=== PATIENT | female | born 1955 | race African-American/Black ===

== ENCOUNTER → 2016-11-29 | Outpatient (CLI) | payer OTHER ==
[2014-08-29 08:55] VITALS: BP 145/89
[~2016-11-29] MED LIST: DOCU-27 PO; DULO60CA6 PO; ESTR0.5T PO; IOHEXOL 180 MG/ML 10 ML VIAL. ONE; MELO-150 PO; TRIA1TAB2 PO; methylPREDNISolone ACETATE 40 MG/ML VIAL. ONE; methylPREDNISolone ACETATE 80 MG/ML VIAL. ONE
--- NOTE | 2016-11-30 00:32 | PAIN ---
DATE OF SERVICE: 11/29/2016 DIAGNOSES: Lumbar radiculopathy with lumbar spinal stenosis, degenerative disk disease and post-lumbar laminectomy syndrome. HISTORY OF PRESENT ILLNESS: The patient is a 61-year-old female who returns for followup status post lumbar epidural steroid injection x 1 on 10/30/2016. The patient reports she did very well about 80% improvement for the first 2 weeks now has about ____ improvement overall in the low back and right lower extremity. The patient reports pain is returning fairly significantly with a sharp and burning sensation, also dull aching pain in the low back radiating to the right leg in the lateral anterior medial thigh and medial lower leg to some extent, but always on the right side. The patient reports no new motor or sensory deficits, no new bowel or bladder incontinence or other complaints. The patient reports her pain is 4 on a scale of 10 today. PHYSICAL EXAMINATION: VITAL SIGNS: The patient's blood pressure 149/75, pulse 72, respirations 18, temperature 97.7 degrees Fahrenheit. Height is 5 feet 6 inches, weight is 190 pounds. GENERAL: The patient is awake, alert, oriented, appropriate, very pleasant demeanor. HEENT: Head shows normocephalic, atraumatic. Extraocular movements are intact and symmetrical. Oral cavity, mucous membranes are moist and pink. Dentition is intact. NECK: Shows anterior throat supple without palpable lymphadenopathy noted. Swallow reflex is symmetrical. Neck shows full rotational motion of the cervical spine without difficulty or tenderness. CHEST: Shows normal on inspection. Breath sounds are clear to auscultation bilaterally. HEART: Shows S1 and S2 clear. ABDOMEN: Soft, nontender, nondistended. No palpable organomegaly is noted. No rebound or guarding demonstrated. BACK: Shows spine grossly midline. Well healed surgical scars noted in the lumbar distribution, lumbar paraspinous musculature is firm with some moderate tenderness to palpation, but only diffusely throughout the upper, middle and lower distribution of paraspinous muscles are symmetrical on appearance. No tenderness over the sacrum or sacroiliac regions. EXTREMITIES: Lower extremities showed deep tendon reflexes at 2+ in the patellar, 1+ tendo calcaneus tendons. Motor exam is strong with 5/5 dorsiflexion, extension, quadriceps and hamstring flexion and equal and symmetrical. Options were discussed with the patient and the patient's old chart was reviewed as her current medication regimen updated. Current review of systems updated today as well and we will plan on second lumbar epidural steroid injection today with fluoroscopic guidance. Risks were again discussed including, but not limited to bleeding, infection, possibility of epidural hematoma, subsequent neurologic compromise, dural puncture, headaches, spinal cord and/or nerve damage, side effects of steroid medication and poor results regarding pain control. The patient understands and wishes to proceed. The patient will return to clinic in approximately 2 weeks for followup, counseled on return appointment, activity level and side effects to be aware of. DIAGNOSES: Lumbar radiculopathy with lumbar spinal stenosis, degenerative disk disease and post-lumbar laminectomy syndrome. PROCEDURE: Lumbar epidural steroid injection, translaminar approach at the L3-L4 level with fluoroscopic guidance under sterile prep and draping using local anesthetic. MEDICATIONS INJECTED: 120 mg Depomedrol plus 10 mL of preservative-free normal saline and 2 mL of Isovue contrast. CONDITION AT DISCHARGE: Stable. The patient tolerated procedure well, had no complications. KLARISSA VOGEL MD DR: SHIN/luz JOB#: [id number] / [id number]
== END ==
LOC: PNCL 08:09
PROVIDERS: ATTEND Anesthesiology
DX: M51.16 Intervertebral disc disorders with radiculopathy, lumbar region (principal); M96.1 Postlaminectomy syndrome, not elsewhere classified; M48.06 Spinal stenosis, lumbar region
CPT/HCPCS: 62323; 99213; J1030; J1040

== ENCOUNTER → 2017-01-10 | Outpatient (CLI) | payer OTHER ==
[2014-08-29 08:55] VITALS: BP 145/89
[~2017-01-10] MED LIST changes: +GABA-586 PO; -IOHEXOL 180 MG/ML 10 ML VIAL. ONE; +METH750T2 PO; +OXYC1TAB9 PO; -methylPREDNISolone ACETATE 40 MG/ML VIAL. ONE; -methylPREDNISolone ACETATE 80 MG/ML VIAL. ONE
[2017-01-10 13:25] LABS: BASO # 0.1 x10^3/uL (0.0-0.2); BASO % 1 % (0-3); EOS % 5 % (0-3); HEMATOCRIT 37.5 % (36.0-47.0); LYMPH % 26 % (24-48); MEAN CORPUSCULAR HEMOGLOBIN 27 pg (25-35); MEAN CORPUSCULAR HGB CONC 32 g/dL (31-37); MEAN CORPUSCULAR VOLUME 85 fL (79-100); MONO % 9 % (0-9); NEUT % 60 % (31-73); PLATELET COUNT 351 x10^3/uL (140-400); RED BLOOD COUNT 4.44 x10^6/uL (3.50-5.40); RED CELL DISTRIBUTION WIDTH 14.4 % (11.5-14.5); WHITE BLOOD COUNT 7.8 x10^3/uL (4.0-11.0)
--- NOTE | 2017-01-10 13:27 | EKG ---
[facility] [address] [place] [address] Test Date: 2017-01-10 Test Time: 13:33:30 Pat Name: MADINA DAMON Department: Room: Gender: [employer] Worker: DALJITK : 1955 Requested By: ANGELES CASTILLO Order Number: [id number] Reading MD: Cheikh Robledo Measurements Intervals Biggers Rate: 56 P: 33 MI: 160 QRS: -2 QRSD: 94 T: 11 QT: 394 QTc: 383 Interpretive Statements SINUS RHYTHM NON-SPECIFIC ST/T CHANGES Electronically Signed On 01-13-2017 13:27:36 CDT by Cheikh Robledo
[2017-01-10 13:41] LABS: ALBUMIN 3.5 g/dL (3.4-5.0); ALBUMIN/GLOBULIN RATIO 0.9 (1.0-1.7); CALCIUM 9.1 mg/dL (8.5-10.1); GFR 68.4; POTASSIUM 3.7 mmol/L (3.5-5.1); TOTAL BILIRUBIN 0.5 mg/dL (0.2-1.0); TOTAL PROTEIN 7.3 g/dL (6.4-8.2)
--- NOTE | 2017-01-13 20:40 | PREOP HP ---
DATE OF SERVICE: 01/15/2017 DICTATED BY: Mayank Rowell R.N. 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 Her last surgery was more than 10 years ago. She has difficulty chronically with left-sided lower back and left buttock pain. More recently, she has developed right anterior thigh pain, which she said is severe. Standing and walking increased her pain. The right sided pain has been present for about 6 months. She limits her activities and since she has very little pain. Standing and walking markedly increased her discomfort. She takes gabapentin. She limits her activities as far as she can. She has had epidural steroid injections recently, which have been of no lasting benefit. PAST MEDICAL HISTORY: Arthritis, hypertension, IBS-C. PAST SURGICAL HISTORY: Lumbar surgery x 3, hysterectomy, tonsillectomy, breast biopsy, bilateral cataract surgery, breast reduction, abdominal surgery. FAMILY HISTORY: Alzheimer's, hypertension. 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 She is . She denies substance abuse. Denies tobacco use. Drinks coffee daily. ALLERGIES: SULFA DRUGS, PENICILLINS, AND LATEX. CURRENT MEDICATIONS: Colace, Cymbalta, Maxzide, Meloxicam, estradiol, and gabapentin. REVIEW OF SYSTEMS: A 12-point review of systems was obtained and is noncontributory except for that mentioned above. NEUROSURGERY EXAMINATION: GENERAL APPEARANCE: Alert, pleasant, in no acute distress. HEAD: Normocephalic and atraumatic. SKIN: Warm and dry, well healed lumbar incisions. MUSCULOSKELETAL: Lumbar paraspinal muscle bulk is normal, restricted range of motion of the lumbar spine, [id number] tenderness of lower lumbar spine with palpation, normal range of motion of the lower extremities bilaterally. EXTREMITIES: No clubbing, cyanosis, or edema. NEUROLOGIC: Alert and oriented x 3, normal recent and remote memory, strength 5/5 in bilateral lower extremities, sensory was intact to light touch in the bilateral lower extremities except for a decrease in the right anterior thigh, reflexes were 1+ left knee jerk, absent right knee jerk, absent left ankle jerk, 1+ right ankle jerk, negative straight leg raising bilaterally, normal gait. IMAGING REVIEWED: I reviewed a lumbar MRI scan. On L3-L4 on the right there is a broad-based disk protrusion that extends predominantly through the right neural foramen, which is associated with severe right-sided foraminal narrowing. At L4-L5, there is posterior disk bulging on the right side with right foraminal and right lateral recess narrowing. At L5-S1, there are postoperative changes on the left with moderate left foraminal stenosis. ASSESSMENT/ PLAN: I believe the problem at L3-L4 on the right is a primary issue responsible for her right anterior thigh pain. At this point, I recommended lumbar microsurgery at L3-L4 on the right including a transfacet exposure to decompress the right L3 nerve root. I also recommend a lumbar microdiscectomy at L4-L5 on the right. I discussed all of this with her in detail. We discussed the risks and expected postoperative course. She would like to go ahead. We will make the arrangements. ANGELES CASTILLO MD DR: HARESH/luz JOB#: [id number] / [id number] ELIAN
== END | disposition home or self-care (01) ==
LOC: SURGPAT 12:36
PROVIDERS: ATTEND Neurological Surgery
DX: Z01.818 Encounter for other preprocedural examination (principal); M54.16 Radiculopathy, lumbar region
CPT/HCPCS: 36415; 80053; 85027; 87641; 93005

== ENCOUNTER 2017-01-15 07:03 | Observation (INO) | payer OTHER ==
[~2017-01-15] VITALS: Ht 170.2 cm; Wt 84.8 kg
[2017-01-15] VITALS (8 sets, daily range): BP systolic 116–139; BP diastolic 64–72
[~2017-01-15 07:03] MED LIST changes: +BACITRACIN 50,000 UNIT in IV NORMAL SALINE 1000ML BAG 1,000 ML IRR ONE; +FENTANYL PF 100 MCG/2 ML VIAL. IV PRN; +IV RINGERS,LACTATED 1000ML 1,000 ML IV SCH; +LIDOCAINE 1% 1 ML SYRINGE. ID PRN; -METH750T2 PO; +ONDANSETRON PF 4 MG/2 ML VIAL. IV PRN; +PROCHLORPERAZINE 10 MG/2 ML VIAL. IV PRN; +VANCOMYCIN 1GM IVPB FOR OMNI 250 ML IV PRN
[2017-01-15] MEDS ORDERED: PROPOFOL 20 ML IV ONE (07:28)
[2017-01-15] MEDS ORDERED: LIDOCAINE 2% 100 MG/5 ML DISP.SYRIN. ONE (07:28)
[2017-01-15] MEDS ORDERED: 0.9 % SODIUM CHLORIDE 50 ML VIAL. IJ ONE (07:28)
[2017-01-15] MEDS ORDERED: PROPOFOL 50 ML IV ONE ×2 (07:28→10:36)
[2017-01-15] MEDS ORDERED: ROCURONIUM 50 MG/5 ML VIAL. ONE (07:29)
[2017-01-15] MEDS ORDERED: REMIFENTANIL 2 MG VIAL. IV ONE (07:29)
[2017-01-15] MEDS ORDERED: FENTANYL PF 100 MCG/2 ML VIAL. ONE (07:29)
[2017-01-15] MEDS ORDERED: SUCCINYLCHOLINE 200 MG/10 ML VIAL. ONE (07:29)
[2017-01-15] MEDS ORDERED: THROMBIN 20,000 UNIT SPRAY.SYRN KIT TP ONE (07:43)
[2017-01-15] MEDS ORDERED: GELATIN SPONGE SIZE 100. ONE (07:43)
[2017-01-15] MEDS ORDERED: KETOROLAC 60 MG/2 ML SYRINGE FOR OR. ONE (07:44)
[2017-01-15] MEDS ORDERED: BUPIVAC MPF-EPI 0.5%-1:200000 30 ML VIAL. ONE (07:44)
[2017-01-15] MEDS ORDERED: EPHEDRINE PF IN SALINE 50 MG/5 ML DISP.SYRIN. IV ONE (09:14)
[2017-01-15] MEDS ORDERED: DEXAMETHASONE SOD PHOS 20 MG/5 ML VIAL. ONE (09:29)
[2017-01-15] MEDS ORDERED: DESFLURANE > 120 MINUTES IH ONE (09:29)
[2017-01-15] MEDS ORDERED: ONDANSETRON PF 4 MG/2 ML VIAL. ONE (10:07)
[2017-01-15] MEDS ORDERED: 0.9 % SODIUM CHLORIDE 10 ML DISP.SYRIN. IV PRN (11:45)
[2017-01-15] MEDS ORDERED: ZOLPIDEM 5 MG TABLET. PO PRN (11:45)
[2017-01-15] MEDS ORDERED: OXYCODONE/APAP 5/325 TABLET. PO PRN (11:45)
[2017-01-15] MEDS ORDERED: NALOXONE 0.4 MG/ML VIAL. IV PRN (11:45)
[2017-01-15] MEDS ORDERED: FENTANYL PF 100 MCG/2 ML VIAL. IV PRN ×2 (11:45)
[2017-01-15] MEDS ORDERED: DIPHENHYDRAMINE 50 MG/ML VIAL IV PRN (11:45)
[2017-01-15] MEDS: MORPHINE SULFATE 2 MG/ML DISP.SYRIN. IV PRN ×4 (11:48→12:26)
[2017-01-15] MEDS: FENTANYL PF 100 MCG/2 ML VIAL. IV PRN ×5 (11:57→13:23)
[2017-01-15] MEDS: HYDROMORPHONE 2 MG/ML VIAL. IV PRN ×4 (12:00→12:48)
[2017-01-15] MEDS ORDERED: MEPERIDINE PF 25 MG/ML VIAL. IV PRN (12:00)
[2017-01-15] MEDS ORDERED: IV DEXTROSE 5 %-0.45 % NACL 1,000 ML IV SCH (13:00)
--- NOTE | 2017-01-15 15:12 | OP ---
DATE OF SURGERY: 01/15/17 PREOPERATIVE DIAGNOSES: 1. Herniated disc and lateral recess stenosis, L4-L5 right. 2. Foraminal disc herniation L3-L4 right with right lumbar radiculopathy. POSTOPERATIVE DIAGNOSES: 1. Herniated disc and lateral recess stenosis, L4-L5, right. 2. Foraminal disc herniation L3-L4 right with right lumbar radiculopathy. OPERATION PERFORMED: 1. Hemilaminotomy and microdiscectomy, right L4-L5. 2. Transfacet exposure with microdecompression of dura and nerve root, L3-L4 right. The operation was done with EMG monitoring, fluoroscopy, and microscopic dissection. SURGEON: John Castillo M.D. UNDER PRESSER: Saleem Sims MD assisted with the surgery, assisted with exposure, the micro diskectomies at both levels as well as the closure. OPERATIVE INDICATIONS: The patient is a very pleasant 61-year-old woman who in the past has undergone 3 previous lumbar surgeries. She did well from those operations. In recent months, she has developed increasing pain in her back which radiated into both the right lateral thigh. On imaging studies, she had the above-mentioned findings and I recommended lumbar microsurgery. I spoke with her about the surgery and the risks involved, she wished to go ahead. DESCRIPTION OF PROCEDURE: Following general endotracheal anesthesia, the patient was positioned prone on the [facility] spine board. Her lumbar region was prepped and draped in a standard fashion. RUSS hose and AV impulse boots were applied for DVT prophylaxis. A microscope was draped. Fluoroscopy was draped and brought into field. Monitoring was established. Vancomycin 1 g was given. Using fluoroscopic guidance, incision was made from L3 through L5. I dissected down through the skin and subcutaneous tissue. This did incorporate a significant portion of her previous incision and reflected the paraspinal muscles and placed a self retaining [place] micro disc retractor, brought in the microscope and directed my attention to L4-L5 confirming my position fluoroscopically. I burred down a generous hemilaminotomy. There was subligamentous herniated disc material which exposed the dura for performing a partial foraminotomy and trimming away ligamentum flavum. I gently retracted the root medially, I incised the annulus and ligament with a #11 blade and I teased back and removed multiple disc fragments and as I worked, the region became very well decompressed. Following this, I explored carefully. I did use small amounts of bone wax for any bone bleeding as well as bipolar cautery and had excellent hemostasis. I then removed the retractors superiorly, I confirmed my position at L3-L4 at this level and I burred down laminotomy and I then followed laterally exposing the L3 root as well as the L4 root, performing partial foraminotomy. I visualized a large lateral disc herniation. I incised the annulus laterally and performed discectomy with pituitary rongeurs. I teased back and removed multiple lateral fragments and the well decompressed L3 root more medially, I trimmed disc away and fully decompressed the entire region. I then irrigated copiously with antibiotic solution. I explored carefully, I assured myself that both roots were quite free throughout their course and no retained fragments. I irrigated and obtained hemostasis with bipolar cautery, again bone wax was used judiciously. I removed the retractor, obtained hemostasis in the muscle, irrigated copiously and I closed the wound in layers with absorbable suture. Skin was closed with 4-0 subcuticular stitch. The operation went very well and the patient was taken to recovery in excellent condition. I was quite pleased with the surgery. JOHN CASTILLO MD DR: HARESH/luz JOB#: [id number] / [id number] ELIAN
[2017-01-15] MEDS: OXYCODONE/APAP 5/325 TABLET. PO PRN ×2 (15:44→20:29)
[2017-01-15] MEDS: DOCUSATE SODIUM 100 MG CAPSULE PO SCH (20:27)
[2017-01-15] MEDS: METHOCARBAMOL 750 MG TABLET PO PRN (20:29)
--- NOTE | 2017-01-15 23:38 | ACF ---
Admission Forms Criteria MUSCULOSKELETAL DISEASE GRG Clinical Indications for Admission to Inpatient Care (Place 'X' for any and all applicable criteria): Hospital admission is needed for appropriate care of the patient because of ANY ONE of the following: [ ]I. Fracture, dislocation, or other musculoskeletal injury requiring inpatient care(medical) as indicated by ANY ONE of the following(4)(5)(6)(7) [ ]a) Vertebral fracture requiring observation for instability or neurologic compromise (8) [ ]b) Compartment syndrome (proven or cannot be ruled out during observation level of care) (9) [ ]c) Limb-threatening injury [ ]d) Major injury requiring inpatient stabilization such as traction initiation or external fixation before internal fixation or closure of complex or open fracture [ ]e) Major injury requiring inpatient treatment after emergency or observation level care (as appropriate) [ ]f) Severe pain requiring acute inpatient management [ ]II. Newly diagnosed or suspected bone, joint, or orthopedic device infection (e.g., osteomyelitis, septic arthritis) needing ANY ONE of the following(1)(2)(3) [ ]a) IV antibiotics that cannot be initiated in other than inpatient setting (e.g., patient too unstable or home infusion not available) [ ]b) Device removal or replacement [ ]c) Bone or soft tissue debridement [ ]d) Joint drainage (drain placement or repetitive aspirations) [ ]III. Severe rheumatologic disease (e.g., systemic lupus erythematosus, rheumatoid arthritis) with complications or comorbidities (Also use Optimal Recovery Care Criteria or General Recovery Criteria as appropriate on the basis of predominant condition), including ANY ONE of the following(10 )(11)(12)(13) [ ]a) Severe infection (e.g., RESEARCH PHLEBOTOMIST infection, sepsis) (14) [ ]b) Respiratory complications, including ANY ONE of the following: [ ]i) Pleural effusion with respiratory compromise [ ]ii) Pulmonary hypertension with congestive failure [ ]iii) Respiratory failure [ ]iv) Pulmonary hemorrhage (15) [ ]c) Hematologic disease, including ANY ONE of the following: [ ]i) Coagulopathy with bleeding [ ]ii) Thrombosis with hypercoagulable state [ ]iii) Thrombotic thrombocytopenic purpura [ ]d) Cerebritis with seizures, psychosis, or other severe abnormalities [ ]e) Vertebral destruction with monitoring needed for cervical myelopathy& possible respiratory compromise [ ]f) Exacerbation that requires inpatient treatment (e.g., intravenous immunosuppression) (16) [ ]g) Acute renal failure [ ]IV. Severe vasculitis with complications or comorbidities (Also use Optimal Recovery Care Criteria or General Recovery Criteria as appropriate on the basis of predominant condition), including ANY ONE of the following(11)(12)(17)(18)(19)(20) [ ]a) RESEARCH PHLEBOTOMIST vasculitis with seizures, psychosis, or other severe abnormalities (22) [ ]b) Renal failure (16) [ ]c) Pulmonary hemorrhage (15) [ ]d) Cerebral infarction [ ]e) Gastrointestinal ischemia [ ]f) Gangrene or threatened amputation [ ]g) Exacerbation that requires inpatient treatment (e.g., intravenous immunosuppression) (19)(21) [ ]V. Severe myopathy as indicated by ANY ONE of the following (28)(29) [ ]a) New onset of airway compromise or inability to swallow [ ]b) Respiratory deterioration with observation needed for impending respiratory failure [ ]c) Exacerbation that requires inpatient treatment (e.g., intravenous immunosuppression) [ ]. Severe gout (crystal arthropathy) as indicated by ANY ONE of the following (23)(24) [ ]a) Severe pain requiring acute inpatient management [ ]b) Exacerbation that requires inpatient treatment (e.g., intravenous treatment) [ ]VII.Rhabdomyolysis and ANY ONE of the following (25)(26)(27) [ ]a) Acute renal failure [ ]b) Need for intravenous hydration after emergency or observation level care (as appropriate) [ ]c) Inability to maintain oral hydration [ ]d) Change in mental status [ ]e) Electrolyte abnormality that remains after emergency or observation level care (as appropriate) [ ]VIII Post amputation complication, as indicated by ANY ONE of the following [ ]a) Infection [ ]b) Dehiscence [ ]c) Myodesis failure [X]IX. Severe pain requiring acute inpatient management as indicated by ALL of the following (30)(31)(32) [X]a) Continuous or frequent (e.g., every 2 to 4 hrs) parenteral analgesics required [A] [X]b) Rapid improvement expected from treatment or acute intervention ( e.g., surgery, anesthesia procedure[B] [ ]X. Musculoskeletal Disease and ALL of the following: [ ]a) Symptom or finding for which emergency and observation care have failed or are not considered appropriate (Use General Criteria: Observation Care as appropriate) [ ]b) Presence of ANY ONE of the following [ ]i) A General Admission Criteria [ ]ii) A Pediatric General Admission Criteria The original [facility] content created by [facility] has been revised. The portions of the content which have been revised are identified through the use of italic text or in bold, and [facility] has neither reviewed nor approved the modified material. All other unmodified content is copyright [facility]. Please see references footnoted in the original [facility] edition 2016 Admission Criteria Met?: Yes RADHA MÁRQUEZ Jan 15, 2017 23:38
[2017-01-16] MEDS: OXYCODONE/APAP 5/325 TABLET. PO PRN ×2 (04:31→09:23)
[2017-01-16 07:00] VITALS: BP 130/70
[2017-01-16] MEDS: METHOCARBAMOL 750 MG TABLET PO PRN (09:22)
[2017-01-16] MEDS: DOCUSATE SODIUM 100 MG CAPSULE PO SCH (09:22)
[2017-01-16 11:00] VITALS: BP 130/69
[2017-01-16] MEDS ORDERED: TRIAMTERENE/HCTZ 37.5/25MG TABLET. PO SCH (11:00)
[2017-01-16] MEDS ORDERED: ESTRADIOL 1 MG TABLET PO SCH (11:00)
[2017-01-16] MEDS ORDERED: DULOXETINE HCL 30 MG CAPSULE.DR. PO SCH (11:00)
[2017-01-16] MEDS ORDERED: MELOXICAM 7.5 MG TABLET PO SCH (11:00)
[2017-01-16] MEDS ORDERED: DOCUSATE SODIUM 100 MG CAPSULE PO SCH (11:00)
--- NOTE | 2017-01-16 11:14 | DISCH ---
DISCHARGE INSTRUCTIONS Condition on Discharge Condition on Discharge: Stable Activity After Discharge Activity Instructions for Disc: Activity as tolerated, Avoid exertion Other activity instructions: do not drive for a week Bathing Instructions: Shower-keep dressing dry Lifting Instructions after Dis: No heavy lifting, No pulling or pushing, Do not lift >10 pounds Diet after Discharge Additional Diet Restrictions: resume home diet Wound Incision Care Wound/Incision Care: Ice to area for comfort Other wound/incision instructi: may remove dressing in 48 hrs then may shower, no soaking Contacting the after DC Call your doctor for: Concerns you may have Follow-Up Follow up with: Dr. Franks in 2 weeks [phone] DINORAH VALENZUELA APRN Jan 16, 2017 11:14
[2017-01-16] MEDS ORDERED: METH750T2 PO (11:16)
[2017-01-16] MEDS ORDERED: OXYCODONE/APAP 10/325 TABLET. PO SCH (12:00)
--- NOTE | 2017-01-16 12:14 | DS ---
DATE OF DISCHARGE: 01/16/2017 DISCHARGE DIAGNOSES: 1. Herniated disc and lateral recess stenosis, L4-L5 right. 2. Foraminal disc herniation at L3-L4 right with right lumbar radiculopathy. OPERATION PERFORMED: 1. Hemilaminotomy and microdiscectomy, right L4-L5. 2. Transfacet exposure with microdecompression of dura and nerve root, L3-L4 right. HISTORY OF PRESENT ILLNESS: The patient is a pleasant 61-year-old who in the past has undergone 3 previous lumbar surgeries. She did well from those surgeries. In recent months, she developed increasing pain in her back which radiated into her right lateral thigh. On imaging studies, she had the above-mentioned findings and I recommended lumbar microsurgery. She understood the surgery and the risk and wished to proceed. HOSPITAL COURSE: She was admitted to the floor postoperatively where she did well. She is up in the room, ambulating in the halls and doing well with this. Physical therapy was initiated and instruction was given to her regarding her activities. Her pain is well controlled and she is in good condition to discharge home today. DISCHARGE MEDICATIONS: She will resume her medications per the MRAD. DISCHARGE INSTRUCTIONS: She was instructed regarding incision care, activity restrictions and expectations for the next several weeks. She will follow up in our office in 2 weeks. She understands to call with any questions or concerns. ANGELES CASTILLO MD DR: SHADE/luz JOB#: [id number] / [id number] ELIAN
--- NOTE | 2017-01-16 14:27 | PATHOLOGY ---
PATHOLOGY REPORT * * * * * * * * FINAL DIAGNOSIS: Segments of fibrocartilaginous, fibroadipose, and skeletal muscle tissue and bone, lumbar disc: - Degenerative changes of fibrocartilaginous tissue. COMMENT: There is no evidence of an acute inflammatory process or malignancy. (JPM:; d/t: 01/16/17) REPORT ELECTRONICALLY SIGNED BY: Roland Kelley M.D. DATE/TIME: 01/16/2017 14:26 * * * * * * * * GROSS PATHOLOGY: Received in formalin labeled "Madina Damon lumbar disc" are multiple segments of guerrero, rubbery, and gritty tissue admixed with bone. The specimen measures 5.2 x 4.8 x 0.9 cm in aggregate dimensions. The tissue is submitted representatively in cassette A1, following decalcification. (CAA; 01/15/2017) INITIAL CPT CODE(S): A; 34725, 37265 Professional services performed [place] [address] Technical services performed by [facility] at [address] [place] [address]. SPECIMEN(S) RECEIVED: A.Lumbar disc CLINICAL HISTORY: Lumbar herniated disc PATIENT: MADINA DAMON /AGE: 10 1955 (Age: 61) PATIENT #: [id number] ALT CASE #: SPECIMEN COLLECTION DATE: 01/15/2017 SPECIMEN RECEIVED DATE: 01/15/2017 [facility] - [address] [place] [address] - PHONE: [phone] * * * END OF REPORT * * *
[2017-01-16 15:00] VITALS: BP 145/92
== END 2017-01-16 17:27 | disposition home or self-care (01) ==
LOC: SURG 07:03 → 4 NORTH 12:14
PROVIDERS: ADMIT Neurological Surgery; ATTEND Neurological Surgery
DX: M51.16 Intervertebral disc disorders with radiculopathy, lumbar region (principal); M48.06 Spinal stenosis, lumbar region; M19.90 Unspecified osteoarthritis, unspecified site; I10 Essential (primary) hypertension; K58.9 Irritable bowel syndrome, unspecified; Z82.49 Family history of ischemic heart disease and other diseases of the circulatory system; Z82.0 Family history of epilepsy and other diseases of the nervous system
CPT/HCPCS: 63030; 63035; 76000; 96374; 96376; 97161; G0378; G0379; J0330; J1100; J1170; J1885; J2270; J2405; J2704; J3010; J3370; J3490; J7030; J7120; 88304; 88311; J0780

== ENCOUNTER → 2017-03-07 | Outpatient (CLI) | payer OTHER ==
[~2017-03-07] MED LIST changes: -BACITRACIN 50,000 UNIT in IV NORMAL SALINE 1000ML BAG 1,000 ML IRR ONE; -FENTANYL PF 100 MCG/2 ML VIAL. IV PRN; -IV RINGERS,LACTATED 1000ML 1,000 ML IV SCH; -LIDOCAINE 1% 1 ML SYRINGE. ID PRN; +METH750T2 PO; -ONDANSETRON PF 4 MG/2 ML VIAL. IV PRN; -PROCHLORPERAZINE 10 MG/2 ML VIAL. IV PRN; -VANCOMYCIN 1GM IVPB FOR OMNI 250 ML IV PRN
--- NOTE | 2017-03-07 14:27 | KCIC ---
PROCEDURE Cervical spine series. HISTORY Left arm radiculopathy. TECHNIQUE Cervical spine series includes oblique views. COMPARISON None. FINDINGS There is no fracture. Slight anterolisthesis at C4-C5 is probably degenerative. C5 and C6 are fused which appears developmental. Facet hypertrophy is greatest on the left at C4-C5. There is probably moderate left osseous foraminal narrowing. IMPRESSION Degenerative findings in the cervical spine with left foraminal narrowing suspected at C4-C5. Electronically signed by: Kurtis Lees MD (March 07, 2017 14:25:19)
== END | disposition home or self-care (01) ==
LOC: KCIC 13:58
PROVIDERS: ATTEND Family Medicine
DX: M54.12 Radiculopathy, cervical region (principal)
CPT/HCPCS: 72050

== ENCOUNTER → 2017-03-14 | Outpatient (CLI) | payer OTHER ==
--- NOTE | 2017-03-14 10:19 | KCIC ---
PROCEDURE MRI cervical spine without contrast. HISTORY Cervical radiculopathy, worsening neck pain, pain between the shoulder blades, left arm pain and numbness TECHNIQUE Multiplanar, multi sequential non contrast MR imaging was performed of the cervical spine. COMPARISON None FINDINGS There is developmental narrowing of the C5-C6 intervertebral disc space, also developmental narrowing of the AP dimension of the C5 and C6 vertebral bodies. Cervical vertebral body stature at other levels is maintained. There is mild grade 1 anterior spondylolisthesis at C4-5, negligible anterior spondylolisthesis at C7-T1. Cervical cord caliber is within normal limits without convincing focal signal abnormality. There is no significant marrow edema. There is posterior annular tear C6-7. There is mild degenerative disc disease C6-7. There is mild disc desiccation at more superior levels. There is no significant abnormality of the cervical medullary junction. There is mild levoscoliosis of the cervical spine. C2-3: Spinal canal and the neural foramina are adequate. C3-4: Neural foramina and spinal canal are adequate. C4-5: There is severe left facet hypertrophic change. There is negligible posterior central protrusion. Spinal canal is adequate. There is minimal narrowing of the left neural foramen, right neural foramen adequate. C5-6: Spinal canal and neural foramina are adequate. C6-7: There is a posterior bulge/broad protrusion, also apparently shallow extruded disc component extending slightly above and below the intervertebral disc space in the paracentral region. There is mild indentation upon the ventral thecal sac. Central canal is borderline 10 millimeters. There is moderate to severe narrowing of the left neural foramen, apparently bulge/protrusion at the anterior margin. There is also facet degenerative change greater on the left. There is mild to moderate narrowing of the right neural foramen. C7-T1: Spinal canal is adequate. Right neural foramen is overall adequate. Left facet and uncovertebral degenerative change contributes to moderate to severe narrowing of the left neural foramen. T1-2: There is likely at least moderate narrowing of the left neural foramen by facet degenerative change. IMPRESSION 1. There is no significant cervical spinal stenosis. 2. There is mild degenerative disc disease C6-7. There is developmental narrowing of the C5-C6 intervertebral disc space as well as of C5 and C6 vertebral bodies. 3. There is narrowing of the left C6-7 to T1-2 neural foramina in part from uncovertebral and facet degenerative change, also likely bulge/protrusion at the anterior margin of the left C6-7 neural foramen. Electronically signed by: Roe Miller MD (March 14, 2017 10:18:31)
== END | disposition home or self-care (01) ==
LOC: KCIC MRI 08:31
PROVIDERS: ATTEND Family Medicine
DX: M50.323 Other cervical disc degeneration at C6-C7 level (principal)
CPT/HCPCS: 72141

== ENCOUNTER → 2018-02-13 | Outpatient (CLI) | payer OTHER ==
[2018-02-13 09:53] LABS: ADD MAN DIFF? NO
[2018-02-13 10:10] LABS: BASO % 1 % (0-3); EOS # 0.4 x10^3/uL (0.0-0.7); EOS % 5 % (0-3); HEMOGLOBIN 11.7 g/dL (12.0-15.5); LYMPH # 1.9 x10^3/uL (1.0-4.8); LYMPH % 29 % (24-48); MEAN CORPUSCULAR HEMOGLOBIN 27 pg (25-35); MEAN CORPUSCULAR HGB CONC 33 g/dL (31-37); MEAN CORPUSCULAR VOLUME 83 fL (79-100); MONO # 0.5 x10^3/uL (0.0-1.1); MONO % 7 % (0-9); NEUT % 58 % (31-73); PLATELET COUNT 373 x10^3/uL (140-400); RED BLOOD COUNT 4.35 x10^6/uL (3.50-5.40); RED CELL DISTRIBUTION WIDTH 14.7 % (11.5-14.5); WHITE BLOOD COUNT 6.8 x10^3/uL (4.0-11.0)
[2018-02-13 10:18] LABS: ALBUMIN 3.3 g/dL (3.4-5.0); ALBUMIN/GLOBULIN RATIO 0.9 (1.0-1.7); ALK PHOS 97 U/L (46-116); ALT (SGPT) 14 U/L (14-59); ANION GAP 5 (6-14); AST (SGOT) 14 U/L (15-37); BLOOD UREA NITROGEN 19 mg/dL (7-20); BUN/CREATININE RATIO 21 (6-20); CALCIUM 8.8 mg/dL (8.5-10.1); CARBON DIOXIDE 32 mmol/L (21-32); CHLORIDE 104 mmol/L (98-107); CHOLESTEROL 237 mg/dL (0-200); CHOLESTEROL/HDL RATIO 2.9; CREATININE 0.9 mg/dL (0.6-1.0); GLUCOSE 88 mg/dL (70-99); HDLC 82 mg/dL (40-60); LDLC 146 mg/dL (0-100); NON-HDL CHOLESTEROL 155 mg/dL (0-129); POTASSIUM 3.2 mmol/L (3.5-5.1); SODIUM 141 mmol/L (136-145); TOTAL BILIRUBIN 0.5 mg/dL (0.2-1.0); TOTAL PROTEIN 6.9 g/dL (6.4-8.2); TRIGLYCERIDES 47 mg/dL (0-150); VLDLC 9 mg/dL (0-40)
== END | disposition home or self-care (01) ==
LOC: LAB 09:30
DX: I10 Essential (primary) hypertension (principal)
CPT/HCPCS: 36415; 80053; 80061; 84443; 85025

== ENCOUNTER → 2018-03-20 | Outpatient (CLI) | payer OTHER | END | disposition home or self-care (01) | LOC: KCIC MAMMO 11:02 | DX: Z12.31 Encounter for screening mammogram for malignant neoplasm of breast (principal); I10 Essential (primary) hypertension; Z98.86 Personal history of breast implant removal | CPT/HCPCS: 77063; 77067 ==

== ENCOUNTER → 2018-11-10 | Outpatient (CLI) | payer OTHER ==
[~2018-11-10] MED LIST changes: +DOCU-109 PO; -DOCU-27 PO; -GABA-586 PO; +GABA300C18 PO; -MELO-150 PO; +MELO15TA23 PO; +OXYC-411 PO; -OXYC1TAB9 PO
[2018-11-10 16:17] LABS: BASO % 1 % (0-3); EOS # 0.2 x10^3/uL (0.0-0.7); EOS % 3 % (0-3); HEMATOCRIT 39.4 % (36.0-47.0); HEMOGLOBIN 13.1 g/dL (12.0-15.5); LYMPH # 2.6 x10^3/uL (1.0-4.8); LYMPH % 35 % (24-48); MEAN CORPUSCULAR HEMOGLOBIN 28 pg (25-35); MEAN CORPUSCULAR HGB CONC 33 g/dL (31-37); MEAN CORPUSCULAR VOLUME 83 fL (79-100); MONO # 0.6 x10^3/uL (0.0-1.1); MONO % 8 % (0-9); NEUT % 54 % (31-73); PLATELET COUNT 379 x10^3/uL (140-400); RED BLOOD COUNT 4.74 x10^6/uL (3.50-5.40); RED CELL DISTRIBUTION WIDTH 14.4 % (11.5-14.5); WHITE BLOOD COUNT 7.5 x10^3/uL (4.0-11.0)
[2018-11-10 16:53] LABS: ALBUMIN 3.7 g/dL (3.4-5.0); ALBUMIN/GLOBULIN RATIO 0.9 (1.0-1.7); CALCIUM 9.7 mg/dL (8.5-10.1); CHOLESTEROL/HDL RATIO 3.6; CREATININE 1.1 mg/dL (0.6-1.0); GFR 60.9; POTASSIUM 3.1 mmol/L (3.5-5.1); TOTAL BILIRUBIN 0.6 mg/dL (0.2-1.0)
== END | disposition home or self-care (01) ==
LOC: LAB 16:01
PROVIDERS: ATTEND Family Medicine
DX: R63.4 Abnormal weight loss (principal); R10.13 Epigastric pain
CPT/HCPCS: 36415; 80053; 80061; 84443; 85025

== ENCOUNTER → 2018-11-27 | Outpatient (CLI) | payer OTHER ==
[~2018-11-27] MED LIST changes: +IOHEXOL 240 MG/ML 50ML VIAL. PO ONE; +IOHEXOL 300 MG/ML 100ML VIAL. IV ONE
--- NOTE | 2018-11-27 15:54 | RAD ---
CT ABD PELV W/ORAL IV CONTRAST Indication: Epigastric pain Technique: Postcontrast CT imaging was performed of the abdomen and pelvis, multiplanar reconstruction images submitted. Oral contrast was also given. One or more of the following individualized dose reduction techniques were utilized for this examination: 1. Automated exposure control 2. Adjustment of the mA and/or kV according to patient size 3. Use of iterative reconstruction technique. Comparison: None Findings: Not fully evaluated, there are some foci of somewhat nodular appearing density of the visualized right breast, largest about 2 cm. There is no adrenal nodularity. Gallbladder is present without obvious intraluminal abnormality by CT. No focal abnormality is identified of the liver, spleen, pancreas. Both kidneys enhance, no hydronephrosis. There is slightly exophytic focus of hypodensity of the mid right kidney about 1.7 cm, density measurements greater than simple cyst 45 Hounsfield units. There is another small hypodense lesion superior right kidney about 0.4 cm too small to accurately characterize. Bowel is not significantly dilated. There is no free air or significant free fluid. Normal appendix is visualized. There is some variable retained stool in the colon including transverse colon. There is mild diverticulosis of the splenic flexure of the colon. Colon is not opacified with oral contrast for accurate evaluation. There is lumbar levoscoliosis. There is multilevel fairly advanced degenerative disc disease L3-4 and L5-S1. There is multilevel lumbar facet degenerative change. There is probable moderate to severe narrowing of the right L4-5 and left L5-S1 neural foramina, likely degree of narrowing on the right at L3-4. IMPRESSION: 1. No significant inflammatory type change is identified, no CT evidence of acute appendicitis. There is diverticulosis of the splenic flexure of the colon. There is retained stool in the colon including of the transverse colon. 2. There is slightly exophytic hypodense lesion of the mid right kidney. This could be a complex cyst although ultrasound evaluation is recommended. 3. There are some foci of nodular appearing density of the visualized right breast otherwise difficult to compare with previous mammograms, better compared by mammography and ultrasound. 4. There is multilevel lumbar degenerative disc disease and facet degenerative change, also neural foramina compromise greatest on the right L4-5 and on the left at L5-S1. Electronically signed by: Timothy Miller MD (11/27/2018 3:50 PM) [facility]
== END | disposition home or self-care (01) ==
LOC: CT 10:31
PROVIDERS: ATTEND Family Medicine
DX: K57.30 Diverticulosis of large intestine without perforation or abscess without bleeding (principal); M51.36 Other intervertebral disc degeneration, lumbar region; N28.89 Other specified disorders of kidney and ureter; M48.061 Spinal stenosis, lumbar region without neurogenic claudication; M48.07 Spinal stenosis, lumbosacral region; K59.00 Constipation, unspecified
CPT/HCPCS: 74177; Q9966; Q9967

== ENCOUNTER → 2019-01-19 | Day surgery (SDC) | payer OTHER ==
[~2019-01-19] MED LIST changes: +DULO30CA2 PO; -IOHEXOL 240 MG/ML 50ML VIAL. PO ONE; -IOHEXOL 300 MG/ML 100ML VIAL. IV ONE; +IV RINGERS,LACTATED 1000ML 1,000 ML IV SCH; +LIDOCAINE 2% PF 5 ML VIAL. ONE; +OMEP20CA10 PO; +PROPOFOL 40 ML IV ONE; +ePHEDrine PF IN SALINE 50 MG/10 ML SYRINGE. IV ONE
[2019-01-19 16:55] VITALS: BP 128/72
== END | disposition home or self-care (01) ==
LOC: ENDOS 15:43
PROVIDERS: ATTEND Internal Medicine Gastroenterology
DX: Z12.11 Encounter for screening for malignant neoplasm of colon (principal); K64.0 First degree hemorrhoids; K29.50 Unspecified chronic gastritis without bleeding; Z88.0 Allergy status to penicillin; Z88.2 Allergy status to sulfonamides; Z91.040 Latex allergy status; I10 Essential (primary) hypertension; E78.00 Pure hypercholesterolemia, unspecified; F32.9 Major depressive disorder, single episode, unspecified; M19.90 Unspecified osteoarthritis, unspecified site; Z82.3 Family history of stroke; Z82.49 Family history of ischemic heart disease and other diseases of the circulatory system; Z72.89 Other problems related to lifestyle; Z79.899 Other long term (current) drug therapy; Z90.710 Acquired absence of both cervix and uterus; Z98.890 Other specified postprocedural states
CPT/HCPCS: 43235; 45378; J0171; J2001; J2704

== ENCOUNTER → 2019-02-01 | Outpatient (CLI) | payer OTHER ==
[2019-01-19 16:55] VITALS: BP 128/72
[~2019-02-01] MED LIST changes: -IV RINGERS,LACTATED 1000ML 1,000 ML IV SCH; -LIDOCAINE 2% PF 5 ML VIAL. ONE; -PROPOFOL 40 ML IV ONE; +SINCALIDE 1.4 MCG in IV NORMAL SALINE 50ML 30 ML IV ONE; -ePHEDrine PF IN SALINE 50 MG/10 ML SYRINGE. IV ONE
--- NOTE | 2019-02-01 08:10 | RAD ---
Right upper quadrant abdominal ultrasound, 02/01/2019: HISTORY: Epigastric pain The gallbladder is within normal limits in size. There is no sonographic evidence of cholelithiasis. The gallbladder ordonez are not thickened. The common hepatic duct is of normal caliber. There is no evidence of a hepatic mass. A 1.8 cm hypoechoic nodule arising from the lateral aspect the right kidney demonstrates posterior acoustic enhancement. The features suggest a cyst. The right kidney is otherwise unremarkable. The pancreas was obscured by overlying bowel. IMPRESSION: 1. No significant gallbladder abnormality is detected. 2. Small right renal cyst. Electronically signed by: Aiden Londono MD (02/01/2019 8:07 AM) [facility]
--- NOTE | 2019-02-01 12:51 | RAD ---
Radionuclide hepatobiliary scan, 02/01/2019: HISTORY: Chronic epigastric pain Following IV injection of 5.5 mCi of technetium 99m Choletec there was prompt uptake of the radionuclide from the blood stream by the liver. Activity is present in the bile ducts and gallbladder at 5 minutes. Small bowel activity developed at 20 minutes. Additional imaging was then performed following IV injection of 1.4 mcg of cholecystokinin. There is good gallbladder emptying with the gallbladder ejection fraction calculated at 88 percent. IMPRESSION: 1. No evidence of cystic duct or common bile duct obstruction. 2. The gallbladder ejection fraction is 88 percent. Electronically signed by: Aiden Londono MD (02/01/2019 12:48 PM) [facility]
== END | disposition home or self-care (01) ==
LOC: US 06:48
PROVIDERS: ATTEND Internal Medicine Gastroenterology
DX: N28.1 Cyst of kidney, acquired (principal); R11.0 Nausea
CPT/HCPCS: 76705; 78227; A9537; J2805

== ENCOUNTER → 2019-02-19 | Outpatient (CLI) | payer OTHER ==
[2019-01-19 16:55] VITALS: BP 128/72
[~2019-02-19] MED LIST changes: -SINCALIDE 1.4 MCG in IV NORMAL SALINE 50ML 30 ML IV ONE
--- NOTE | 2019-02-19 12:56 | RAD ---
Radionuclide gastric emptying study, 02/19/2019: HISTORY: Epigastric pain, nausea The study was performed utilizing a solid test meal radiolabeled with 2 mCi of technetium 99m sulfur colloid. The following gastric retention values were obtained: 1 hour-50 percent 2 hours-34 percent 3 hours-14 percent 4 hours-2 percent These values are in the normal range. A gastric T1/2 of 79 minutes was also calculated. IMPRESSION: Normal gastric emptying study. Electronically signed by: Aiden Londono MD (02/19/2019 12:53 PM) [facility]
== END | disposition home or self-care (01) ==
LOC: NM 15:53
PROVIDERS: ATTEND Internal Medicine Gastroenterology
DX: R10.13 Epigastric pain (principal)
CPT/HCPCS: 78264; A9541

== ENCOUNTER → 2019-03-01 | Outpatient (CLI) | payer OTHER ==
[2019-01-19 16:55] VITALS: BP 128/72
== END | disposition home or self-care (01) ==
LOC: LAB 08:52
PROVIDERS: ATTEND Internal Medicine Gastroenterology
DX: R63.4 Abnormal weight loss (principal)
CPT/HCPCS: 36415; 84439

== ENCOUNTER 2019-05-18 13:55 | Emergency (ER) | payer OTHER ==
[~2019-05-18] VITALS: Ht 165.1 cm; Wt 75.0 kg
[2019-05-18] MEDS ORDERED: amLODIPine BESYLATE 5 MG TABLET PO ONE (15:15)
[2019-05-18] MEDS ORDERED: hydrALAZINE 20 MG/ML VIAL. IVP ONE (15:15)
[2019-05-18 15:25] LABS: BASO # 0.1 x10^3/uL (0.0-0.2); BASO % 1 % (0-3); EOS # 0.2 x10^3/uL (0.0-0.7); EOS % 4 % (0-3); HEMATOCRIT 38.8 % (36.0-47.0); HEMOGLOBIN 12.6 g/dL (12.0-15.5); LYMPH # 1.2 x10^3/uL (1.0-4.8); LYMPH % 21 % (24-48); MEAN CORPUSCULAR HEMOGLOBIN 28 pg (25-35); MEAN CORPUSCULAR HGB CONC 32 g/dL (31-37); MEAN CORPUSCULAR VOLUME 86 fL (79-100); MONO # 0.4 x10^3/uL (0.0-1.1); MONO % 7 % (0-9); NEUT # 3.8 x10^3/uL (1.8-7.7); NEUT % 68 % (31-73); PLATELET COUNT 299 x10^3/uL (140-400); RED BLOOD COUNT 4.53 x10^6/uL (3.50-5.40); RED CELL DISTRIBUTION WIDTH 15.3 % (11.5-14.5); WHITE BLOOD COUNT 5.6 x10^3/uL (4.0-11.0)
--- NOTE | 2019-05-18 15:52 | RAD ---
PQRS Compliance Statement: One or more of the following individualized dose reduction techniques were utilized for this examination: 1. Automated exposure control 2. Adjustment of the mA and/or kV according to patient size 3. Use of iterative reconstruction technique CT HEAD WITHOUT CONTRAST History: Altered mental status. Comparison: CT head without contrast, April 23, 2019. Procedure: Axial images are obtained of the head from the skull base through the vertex without IV contrast. Findings: The ventricles and sulci are normal for the patient's age. No mass-effect, midline shift, hemorrhage, extra-axial fluid collection, or obvious acute infarction is identified. Basilar cisterns are patent. Bone windows demonstrate no acute calvarial abnormality. The visualized paranasal sinuses are clear. Mastoid air cells are well aerated. IMPRESSION: No acute intracranial abnormality. Electronically signed by: Balaji Cortes MD (05/18/2019 3:49 PM) [id number]
[2019-05-18 16:14] LABS: CALCIUM 9.2 mg/dL (8.5-10.1); CREATININE 0.9 mg/dL (0.6-1.0); GFR 76.8; POTASSIUM 3.9 mmol/L (3.5-5.1)
[2019-05-18 16:21] LABS: ALBUMIN/GLOBULIN RATIO 1.2 (1.0-1.7); TOTAL BILIRUBIN 0.5 mg/dL (0.2-1.0); TOTAL PROTEIN 7.4 g/dL (6.4-8.2)
--- NOTE | 2019-05-18 16:45 | PHYS DOC ---
Past Medical History Past Medical History: Depression, Hypertension, IBS Additional Past Medical Histor: HERNIATED DISK Past Surgical History: Other Additional Past Surgical Histo: BACK X 3, BREAST REDUCTION, ABD PLASTY,CATARACTS Alcohol Use: Occasionally Drug Use: None Adult General Chief Complaint Chief Complaint: ALTERED MENTAL STATUS HPI HPI Patient is a 63 year old f who presents to the ED for evaluation of resolved episode of altered mental status. Patient with approximate 10 minutes of confusion while at work. Patient also was complaining of nausea. Patient with similar episode approximately one week ago. Was hospitalized and had a full stroke workup including an echo and MRI of her brain that was all reassuring. Patient ultimately diagnosed with hypertensive encephalopathy. Patient had amlodipine 2.5 mg added to her medication list. Patient reports compliance with all of her home medications. Patient does not check her blood pressure home. Patient denies any current symptoms. Patient denies any headache, patient changes, chest pain, palpitations, lower extremity edema. Review of Systems Review of Systems Constitutional: Denies fever or chills [] Eyes: Denies change in visual acuity, redness, or eye pain [] HENT: Denies nasal congestion or sore throat [] Respiratory: Denies cough or shortness of breath [] Cardiovascular: No chest pain, no palpitations, no LE edema GI: Denies abdominal pain, nausea, vomiting, bloody stools or diarrhea [] : Denies dysuria or hematuria [] Musculoskeletal: Denies back pain or joint pain [] Integument: Denies rash or skin lesions [] Neurologic: Denies headache, focal weakness or sensory changes [] Endocrine: Denies polyuria or polydipsia [] All other systems were reviewed and found to be within normal limits, except as documented in this note. Current Medications Current Medications Current Medications Medications (Trade) Dose Ordered Sig/Marta Start Time Stop Time Status Last Admin Dose Admin Amlodipine Besylate (Norvasc) 5 mg 1X ONCE 05/18/19 15:15 05/18/19 15:17 DC 05/18/19 15:22 5 MG Hydralazine HCl (Apresoline Inj) 10 mg 1X ONCE 05/18/19 15:15 05/18/19 15:17 DC 05/18/19 15:23 10 MG Allergies Allergies Allergies Coded Allergies Type Severity Reaction Last Updated Verified Penicillins Allergy Intermediate 01/19/19 No Sulfa (Sulfonamide Antibiotics) Allergy Intermediate 01/19/19 No latex Allergy Intermediate 01/19/19 No Physical Exam Physical Exam Constitutional: Well developed, well nourished, no acute distress, non-toxic appearance. [] HENT: Normocephalic, atraumatic, Eyes: PERRLA, EOMI, conjunctiva normal, no discharge. [] Neck: Normal range of motion, no tenderness, supple, no stridor. [] Cardiovascular:Heart rate regular rhythm, no murmur [] Lungs & Thorax: Bilateral breath sounds clear to auscultation [] Abdomen: Bowel sounds normal, soft, no tenderness, no masses, no pulsatile masses. [] Skin: Warm, dry, no erythema, no rash. [] Back: No tenderness, no CVA tenderness. [] Extremities: No tenderness, no cyanosis, no clubbing, ROM intact, no edema. [] Neurologic: Alert and oriented X 3, cranial nerves II through XII intact bilateral, 5 out of 5 muscle strength in all 4 extremities, normal sensory function, no focal deficits noted, cerebellar function intact with bilateral finger to nose and heel to carrillo.[] Psychologic: Affect normal, judgement normal, mood normal. [] Current Patient Data Vital Signs Vital Signs Date Time Temp Pulse Resp B/P (MAP) Pulse Ox O2 Delivery O2 Flow Rate FiO2 05/18/19 15:23 52 191/95 05/18/19 14:15 97.6 17 100 Room Air 97.6 Lab Values Laboratory Tests Test 05/18/19 15:08 White Blood Count 5.6 x10^3/uL (4.0-11.0) Red Blood Count 4.53 x10^6/uL (3.50-5.40) Hemoglobin 12.6 g/dL (12.0-15.5) Hematocrit 38.8 % (36.0-47.0) Mean Corpuscular Volume 86 fL (79-100) Mean Corpuscular Hemoglobin 28 pg (25-35) Mean Corpuscular Hemoglobin Concent 32 g/dL (31-37) Red Cell Distribution Width 15.3 % (11.5-14.5) H Platelet Count 299 x10^3/uL (140-400) Neutrophils (%) (Auto) 68 % (31-73) Lymphocytes (%) (Auto) 21 % (24-48) L Monocytes (%) (Auto) 7 % (0-9) Eosinophils (%) (Auto) 4 % (0-3) H Basophils (%) (Auto) 1 % (0-3) Neutrophils # (Auto) 3.8 x10^3/uL (1.8-7.7) Lymphocytes # (Auto) 1.2 x10^3/uL (1.0-4.8) Monocytes # (Auto) 0.4 x10^3/uL (0.0-1.1) Eosinophils # (Auto) 0.2 x10^3/uL (0.0-0.7) Basophils # (Auto) 0.1 x10^3/uL (0.0-0.2) Sodium Level 139 mmol/L (136-145) Potassium Level 3.9 mmol/L (3.5-5.1) Chloride Level 99 mmol/L (98-107) Carbon Dioxide Level 30 mmol/L (21-32) Anion Gap 10 (6-14) Blood Urea Nitrogen 19 mg/dL (7-20) Creatinine 0.9 mg/dL (0.6-1.0) Estimated GFR (Cockcroft-Gault) 76.8 BUN/Creatinine Ratio 21 (6-20) H Glucose Level 89 mg/dL (70-99) Calcium Level 9.2 mg/dL (8.5-10.1) Total Bilirubin 0.5 mg/dL (0.2-1.0) Aspartate Amino Transferase (AST) 25 U/L (15-37) Alanine Aminotransferase (ALT) 20 U/L (14-59) Alkaline Phosphatase 89 U/L (46-116) Troponin I Quantitative < 0.017 ng/mL (0.000-0.055) Total Protein 7.4 g/dL (6.4-8.2) Albumin 4.0 g/dL (3.4-5.0) Albumin/Globulin Ratio 1.2 (1.0-1.7) Laboratory Tests 05/18/19 15:08 Laboratory Tests 05/18/19 15:08 EKG EKG 14:46: Normal sinus rhythm, heart rate 52, no significant ST segment changes.[] Radiology/Procedures Radiology/Procedures CT Head IMPRESSION: No acute intracranial abnormality. [] Course & Med Decision Making Course & Med Decision Making Pertinent Labs and Imaging studies reviewed. (See chart for details) 1645: Patient is remained asymptomatic while in the ER. She has a normal neurological exam with NIH of 0. She was hypertensive on arrival but responded well to oral amlodipine and one-time dose of hydralazine. Labs reassuring with no obvious life-threatening pathology with current clinical presentation. Head CT with no acute findings. Suspect blood pressure has continued to be uncontrolled as patient does not check her blood pressure home. Advised getting a blood pressure cuff and locking her blood pressure. Advised close follow-up with PCP and neurologist. Labs and imaging discussed at length with patient. Advised increasing home amlodipine. ER return precautions given. Patient verbalized understanding. All questions answered. Dragon Disclaimer Dragon Disclaimer This electronic medical record was generated, in whole or in part, using a voice recognition dictation system. Departure Departure Impression: Primary Impression: Altered mental status Additional Impressions: Hypertensive encephalopathy Hypertension, uncontrolled Disposition: 01 HOME, SELF-CARE Condition: IMPROVED Referrals: HESHAM KELLER MD (PCP) Patient Instructions: Hypertension Additional Instructions: Thank you for coming to [facility]. Please read the attached handouts. Please follow-up with your primary care physician. Return to the ER if your symptoms worsen or you have any other concerns. Please by a blood pressure cuff and check an longer blood pressure twice a day. Please increase your Amlodipine to 5 mg once a day. Call your primary care physician if your blood pressure remains uncontrolled. Problem Qualifiers WEI MATHEW DO May 18, 2019 16:45
[2019-05-18 16:47] VITALS: BP 154/79
--- NOTE | 2019-05-19 06:52 | EKG ---
[facility] [address] [place] [address] Test Date: 2019-05-18 Test Time: 14:46:58 Pat Name: MADINA DAMON Department: Room: Gender: F Instrument Inspector: : [id number] Requested By: WEI MATHEW Order Number: [id number] Reading MD: Measurements Intervals [place] Rate: 52 P: 38 [place]: 166 QRS: 1 QRSD: 102 T: 13 QT: 414 QTc: 387 Interpretive Statements SINUS RHYTHM LEFT ATRIAL ABNORMALITY T ABNORMALITY IN ANTEROSEPTAL LEADS ABNORMAL ECG RI6.01 Unconfirmed report No previous ECG available for comparison
== END 2019-05-18 16:55 | disposition home or self-care (01) ==
LOC: ER 13:55
DX: R41.82 Altered mental status, unspecified (principal); I67.4 Hypertensive encephalopathy; F32.9 Major depressive disorder, single episode, unspecified; Z88.2 Allergy status to sulfonamides; Z88.0 Allergy status to penicillin; Z91.040 Latex allergy status
CPT/HCPCS: 36415; 70450; 80053; 84484; 85025; 93005; 96374; 99285; J0360

== ENCOUNTER → 2019-07-29 | Outpatient (CLI) | payer OTHER ==
[2019-08-04 07:15] LABS: DOPA UR 88 ug/L (Undefined); EPI UR 2 ug/L (Undefined); NOREPI UR 27 ug/L (Undefined)
[2019-08-04 08:13] LABS: METANEPH UR 69 ug/L (Undefined); TOTAL METANEPHRINES UR 90 ug/24 hr (45-290)
[2019-08-04 15:15] LABS: ALDOSTERONE 19.6 ng/dL (0.0-30.0)
== END | disposition home or self-care (01) ==
LOC: LAB 15:49
PROVIDERS: ATTEND Family Medicine
DX: C74.10 Malignant neoplasm of medulla of unspecified adrenal gland (principal)
CPT/HCPCS: 36415; 82088; 82384; 83835; 84244

== ENCOUNTER → 2019-08-27 | Outpatient (CLI) | payer OTHER ==
--- NOTE | 2019-08-27 14:49 | KCIC ---
EXAM: Griffith scale and color Doppler renal artery sonogram. HISTORY: Hypertension. TECHNIQUE: Griffith scale and color Doppler sonographic imaging of the renal arteries with spectral waveform analysis was performed. COMPARISON: None. FINDINGS: The right kidney measures 9.8 cm [id number]. The left kidney measures 9.8 cm [id number]. There is a 2.0 cm cyst with internal echoes within the lateral right kidney. The peak systolic velocity within the right renal artery is 95 cm/s. The peak systolic velocity within the left renal artery is 140 cm/s. There are normal renal artery to aorta velocity ratios. The bladder is unremarkable. IMPRESSION: 1. No Doppler evidence of greater than 60% stenosis within the renal arteries. 2. 2.0 cm right renal cyst with internal echoes possibly due to debris. Electronically signed by: Alethea Heredia MD (08/27/2019 2:46 PM) [id number]
== END | disposition home or self-care (01) ==
LOC: KCIC US 07:58
PROVIDERS: ATTEND Family Medicine
DX: N28.1 Cyst of kidney, acquired (principal); I10 Essential (primary) hypertension
CPT/HCPCS: 76770

== ENCOUNTER → 2019-09-22 | Outpatient (CLI) | payer OTHER ==
--- NOTE | 2019-09-22 09:47 | RAD ---
MR#: [id number] Date of Study: 09/22/2019 Ordering Physician: BENNIE HOUSTON, Referring Physician: BENNIE HOUSTON, Tech: Alfred Amato MBA, RDMS, RVT, RDCS, RTR APPROVED REPORT Patient Location: OUT-PATIENT Laterality:Bilateral Indications Syncope Doppler Spectral Velocity Analysis Right Left pCCA 91/19 cm/spCCA 100/29 cm/s mCCA 97/20 cm/smCCA 82/28 cm/s dCCA 72/21 cm/sdCCA 74/25 cm/s Bulb 61/18 cm/sBulb 80/23 cm/s ECA 86/ cm/sECA 66/ cm/s pICA 86/27 cm/spICA 54/22 cm/s Sagar 97/34 cm/smICA 69/27 cm/s dICA 92/34 cm/sdICA 73/29 cm/s Vert. 61/ cm/sVert. 32/ cm/s Subcl. 116/ cm/sSubcl. 83/ cm/s ICA/CCA 1.00ICA/CCA 0.73 Findings Grayscale images of the bilateral common carotid, external and internal carotid vessels reveals mild diffuse intimal hyperplasia without any significant obstructive plaque. Spectral waveforms and color Doppler and velocities are within normal limits in the bilateral interna l and external carotid vessels. The vertebral velocities are antegrade. Normal ICA to CCA ratios note d. Overall 0 to less than 50% stenosis based on criteria There is incidental diagnosis of a inferior thyroid nodule measuring approximately 3.7 cm. Critical Notification Critical Value: No <Conclusion> 1. No significant carotid occlusive disease bilaterally 2. Incidental thyroid nodule as described above, recommend dedicated thyroid ultrasound study. Signed by : Cheikh Robledo, Electronically Approved : 09/22/2019 09:47:05
== END | disposition home or self-care (01) ==
LOC: US 07:19
PROVIDERS: ATTEND Internal Medicine Cardiovascular Disease
DX: R55 Syncope and collapse (principal); E04.1 Nontoxic single thyroid nodule
CPT/HCPCS: 93880

== ENCOUNTER → 2019-09-24 | Outpatient (CLI) | payer OTHER ==
--- NOTE | 2019-09-24 13:22 | CARD ---
MR#: [id number] Date of Study: 09/24/2019 Ordering Physician: BENNIE SUTTON, Referring Physician: BENNIE SUTTON, Tech: APPROVED REPORT PROCEDURE: Successful implantation of [employer] Confirm loop recorder INDICATIONS: Recurrent near syncope of uncertain etiology PROCEDURE DETAILS: An informed consent was obtained from patient. Patient was brought to the procedure suite and her le ft chest and shoulder were prepped and draped in the usual fashion. 20 mL of 2% lidocaine was infilt rated into the skin and subcutaneous tissues for local anesthesia. An incision was made in the left foot intercostal space 1 inch from midsternal line and using the introducer provided with the kit a t rack was created and a [employer] Confirm loop recorder serial number [id number] was placed in the subcu taneous tissue. The incision was closed in one layer. Hemostasis was secured. Patient tolerated th e procedure well. There were no immediate complications. At the end of procedure, the device showed sensing amplitude of 0.6 mV. CONCLUSION: Successful implantation of [employer] Confirm loop recorder to rule out any significant cardiac arrhy thmias as a cause of patient's recurrent near syncope. Signed by : Bennie Sutton, Electronically Approved : 09/24/2019 13:21:59
== END | disposition home or self-care (01) ==
LOC: LINQ 10:50
PROVIDERS: ATTEND Internal Medicine Cardiovascular Disease
DX: Z45.09 Encounter for adjustment and management of other cardiac device (principal); R55 Syncope and collapse
CPT/HCPCS: 33285; C1764

== ENCOUNTER → 2019-10-06 | Outpatient (CLI) | payer OTHER ==
[~2019-10-06] MED LIST changes: +OMEP-229 PO; -OMEP20CA10 PO
--- NOTE | 2019-10-06 16:21 | KCIC ---
Clinical indications: Left thyroid nodule seen on carotid ultrasound study dated September 22, 2019.. Findings: The longitudinal and AP and transverse dimensions of the right lobe of the thyroid gland are 5.0 cm x 1.7 cm x 1.7 cm respectively. Small subcentimeter nodule of the anterior mid aspect of the right lobe is seen measuring 7 mm. The longitudinal and AP and transverse dimensions of the left lobe are 7.5 cm x 1.3 cm x 2.5 cm respectively. Large solid nodule with seen within the lower pole of the left lobe measuring up to 39 mm in greatest dimension. Calcifications are present within it. This is an ACR TI RADS lesion 4. Therefore, recommend biopsy. The isthmus is homogeneous in appearance and measures 3.4 mm in thickness. . Impression: Large 39 mm nodule of the lower pole of the left lobe. Recommend ultrasound-guided fine-needle aspiration. Reference: ACR thyroid imaging, reporting and data system (TI-RADS): White paper of the ACR TI-RADS committee; JOURNAL OF THE [employer]IOLOG[employer]; volume 14, issue 5, pages 587-595 (March 2017) Electronically signed by: Roman Gorman MD (10/06/2019 4:18 PM) [facility]
== END | disposition home or self-care (01) ==
LOC: KCIC US 10:52
PROVIDERS: ATTEND Family Medicine
DX: E04.1 Nontoxic single thyroid nodule (principal)
CPT/HCPCS: 76536

== ENCOUNTER → 2019-10-26 | Outpatient (CLI) | payer OTHER ==
[~2019-10-26] MED LIST changes: -OMEP-229 PO; +OMEP20CA16 PO
--- NOTE | 2019-10-26 09:57 | RAD ---
EXAM: ULTRASOUND-GUIDED THYROID FINE-NEEDLE ASPIRATION. HISTORY: Left thyroid nodule. Ultrasound-guided biopsy is requested. FINDINGS: The procedure along with its risks and benefits were explained to the patient. They agreed to proceed. A timeout procedure was performed. Sonographic images of the thyroid gland were obtained. The large solid solid target nodule in the left lower pole was adequately visualized for biopsy. The overlying skin was sterilely prepped and infiltrated with 1% lidocaine for local anesthesia. Under ultrasound guidance, 4 aspirates were obtained using 25-gauge needles. These were hand delivered to pathology who determined them adequate for diagnosis. A sterile dressing was placed. There were no immediate complications. IMPRESSION: 1. Successful ultrasound-guided fine-needle aspiration of the large left lower pole thyroid nodule. Electronically signed by: Nata Avelar MD (10/26/2019 9:54 AM) [id number]
--- NOTE | 2019-10-28 16:06 | PATHOLOGY ---
Note [facility] Accession Number: [id number] TESTS RESULT FLAG UNITS REF RANGE LAB Clinician Provided Cytology Information No. of containers..01 Other (Miscellaneous) Source: LEFT THYROID NODULE DIAGNOSIS: LEFT THYROID NODULE NEGATIVE FOR MALIGNANT CELLS. BETHESDA CATEGORY II. SPECIMEN CONSISTS OF ABUNDANT BENIGN FOLLICULAR CELLS, HEMOSIDERIN-LADEN MACROPHAGES, SCANT COLLOID AND BLOOD. THE PATTERN IS CONSISTENT WITH ADENOMATOID NODULE. THIS INTERPRETATION INCLUDES EVALUATION OF A CELL BLOCK. Pathologist ICD10: 02 E04.1 Signed out by: 02 Kirk Scott MD, Pathologist NPI- [id number] Performed by: Aviva Rodriguez, Directory Operator ([facility]) Gross description: 01 30ML, CLEAR RED, 2F 2HE /LCS 10/26/2019 1759 Local FLAG LEGEND: L-Low Normal,H-High Normal,LL-Alert Low,HH-Alert High <-Panic Low,>-Panic High,A-Abnormal,AA-Critical Abnormal Performed at: [facility] [address] [place] [address] Fredrick Sullivan MD, 02 [facility] [address] [place] [address] Roland Kelley MD, Specimen Comment: A courtesy copy of this report has been sent to [phone], [phone] Specimen Comment: [id number] Specimen Comment: [id number] Specimen Comment: Report sent to / DR KELLER Specimen Comment: A duplicate report has been generated due to demographic updates. Performed at: [address], [place] [id number] MD Fredrick Sullivan MD Phone: [phone]
== END ==
LOC: US 08:35
PROVIDERS: ATTEND Family Medicine
DX: E04.1 Nontoxic single thyroid nodule (principal)
CPT/HCPCS: 10005; 76942; 88173; 88305

== ENCOUNTER → 2019-11-24 | Outpatient (CLI) | payer OTHER ==
[2019-11-24 12:35] LABS: CALCIUM 9.5 mg/dL (8.5-10.1); CREATININE 0.9 mg/dL (0.6-1.0); GFR 76.5; POTASSIUM 3.9 mmol/L (3.5-5.1)
== END | disposition home or self-care (01) ==
LOC: LAB 11:58
PROVIDERS: ATTEND Family Medicine
DX: I10 Essential (primary) hypertension (principal)
CPT/HCPCS: 36415; 80048

== ENCOUNTER → 2020-01-04 | Outpatient (CLI) | payer OTHER ==
[2020-01-04 08:08] LABS: BASO % 1 % (0-3); EOS # 0.2 x10^3/uL (0.0-0.7); EOS % 2 % (0-3); HEMATOCRIT 37.7 % (36.0-47.0); HEMOGLOBIN 12.4 g/dL (12.0-15.5); LYMPH # 1.2 x10^3/uL (1.0-4.8); LYMPH % 19 % (24-48); MEAN CORPUSCULAR HEMOGLOBIN 28 pg (25-35); MEAN CORPUSCULAR HGB CONC 33 g/dL (31-37); MEAN CORPUSCULAR VOLUME 84 fL (79-100); MONO # 0.4 x10^3/uL (0.0-1.1); MONO % 7 % (0-9); NEUT # 4.6 x10^3/uL (1.8-7.7); NEUT % 71 % (31-73); PLATELET COUNT 364 x10^3/uL (140-400); RED BLOOD COUNT 4.49 x10^6/uL (3.50-5.40); RED CELL DISTRIBUTION WIDTH 14.6 % (11.5-14.5); WHITE BLOOD COUNT 6.4 x10^3/uL (4.0-11.0)
[2020-01-04 08:36] LABS: ALBUMIN 3.9 g/dL (3.4-5.0); ALBUMIN/GLOBULIN RATIO 1.1 (1.0-1.7); CALCIUM 9.3 mg/dL (8.5-10.1); CREATININE 1.5 mg/dL (0.6-1.0); GFR 42.4; POTASSIUM 4.2 mmol/L (3.5-5.1); TOTAL BILIRUBIN 0.4 mg/dL (0.2-1.0); TOTAL PROTEIN 7.4 g/dL (6.4-8.2)
[2020-01-04 08:47] LABS: FREE T4 0.91 ng/dL (0.76-1.46); THYROID STIM HORMONE (TSH) 1.861 uIU/mL (0.358-3.74)
[2020-01-04 09:07] LABS: BARBITURATES NEG (NEG); BENZODIAZEPINES NEG (NEG); CANNABINOIDS NEG (NEG); COCAINE NEG (NEG); METHADONE NEG (NEG); OPIATES NEG (NEG); PHENCYCLIDINE NEG (NEG)
[2020-01-04 09:13] LABS: AMPHETAMINE/METHAMPHETAMINE NEG (NEG)
[2020-01-06 19:09] LABS: ANA INTERP Negative (.)
== END | disposition home or self-care (01) ==
LOC: LAB 06:07
PROVIDERS: ATTEND Psychiatry & Neurology Neurology
DX: R56.9 Unspecified convulsions (principal)
CPT/HCPCS: 36415; 80053; 80307; 82607; 84439; 84443; 85025; 86038

== ENCOUNTER → 2020-01-31 | Outpatient (CLI) | payer OTHER ==
--- NOTE | 2020-02-02 16:18 | EEG ---
DATE OF SERVICE: 01/31/2020 OBJECTIVE: This is a 64-year-old -[place] female patient with history of seizure or seizure-like episodes. EEG was requested to evaluate seizure activity. This is a long-term video EEG study. METHODS: Twenty electrodes were applied according to the international 10-20 electrode placement system. EKG monitoring, hyperventilation, intermittent photic stimulation, monopolar and bipolar montages are routinely utilized. The record was obtained on a digital system with video monitoring. FINDINGS: 1. Background: The patient was recorded in the awake, drowsy, and sleep states. The overall background amplitude is 10-20 microvolts. A posterior dominant rhythm of 8-9 Hz is observed. 2. Abnormalities: No specific epileptiform discharge or electrographic seizure is seen. No focal or diffuse slowing. 3. Activation: Hyperventilation was performed with good efforts and normal response. Intermittent photic stimulation was performed with photic driving. No specific epileptiform discharge or electrographic seizure is seen. IMPRESSION: This is a long-term video EEG study with the total video monitoring and EEG recording time of 24 hours from 01/31/2020 to 02/01/2020. This is the day one long-term video EEG monitoring. This is long-term video EEG study is a normal study for the awake, drowsy, and sleep states. No focal, lateralizing, specific epileptiform discharge, or electrographic seizure is seen. HAMZAH FRANKEL MD DR: GENA/luz JOB#: [id number] / [id number] ELIAN
--- NOTE | 2020-02-02 16:47 | EEG ---
DATE OF SERVICE: 02/02/2020 EEG REPORT EEG DATE: 02/01/2020 to 02/02/2020 OBJECTIVE: This is a 64-year-old -[place] female patient with history of seizure or seizure-like episodes. EEG was requested to evaluate her seizure activity. This is day 2 of long-term video EEG study. METHODS: Twenty electrodes were applied according to the international 10-20 electrode placement system. EKG monitoring, hyperventilation, intermittent photic stimulation, monopolar and bipolar montages are routinely utilized. The record was obtained on a digital system with video monitoring. FINDINGS: 1. Background: The patient was recorded in the awake, drowsy, and sleep states. The overall background amplitude is 10-20 microvolts. A posterior dominant rhythm of 8-9 Hz is observed. 2. Abnormalities: No specific epileptiform discharge or electrographic seizure is seen. No focal or diffuse slowing. 3. Activation: Hyperventilation was performed on day 1 study. Intermittent photic stimulation was also performed on day 1 study. IMPRESSION: This is a long-term video EEG study with the total video monitoring and EEG recording time of 24 hours from 02/01/2020 to 02/02/2020. This long-term video EEG study is a normal study for the awake, drowsy, and sleep states. No focal, lateralizing, specific epileptiform discharge or electrographic seizure is seen. Significant artifact also noted. HAMZAH FRANKEL MD DR: GENA/luz JOB#: [id number] / [id number] ELIAN
== END | disposition home or self-care (01) ==
LOC: SLPLAB 05:47
PROVIDERS: ATTEND Psychiatry & Neurology Neurology
DX: R56.9 Unspecified convulsions (principal)
CPT/HCPCS: 95951

== ENCOUNTER 2020-02-07 17:26 | Emergency (ER) | payer OTHER ==
[~2020-02-07] VITALS: Ht 167.6 cm; Wt 68.0 kg
[2020-02-07] MEDS ORDERED: IV NORMAL SALINE 1000ML BAG 1,000 ML IV ONE (18:15)
--- NOTE | 2020-02-07 18:26 | PHYS DOC ---
Past Medical History Past Medical History: Hypertension Additional Past Medical Histor: HERNIATED DISK Additional Past Surgical Histo: BACK X 3, BREAST REDUCTION, ABD PLASTY,CATARACTS Smoking Status: Never Smoker Alcohol Use: None Drug Use: None Adult General Chief Complaint Chief Complaint: ALTERED MENTAL STATUS HPI HPI 64-year-old female presents to the emergency department after episode of unresponsiveness in which patient stares off into space. Patient has been experi encing these episodes for over 1 year. Reports last episode was approximately 3 weeks ago. 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 Reports she starts to have some aura that an episode is coming on which include nausea. Patient subsequently doesn't remember the episode and a short period following the episode. Patient's charge nurse became concerned an d sent her to the ER for evaluation. Patient apparently has had similar episodes recently for which she follows with neurology- Dr. Jose. Patient reportedly underwent an EEG which was "normal". Patient denies pain. Denies trauma. Denies fever/chills. Denies dysuria. 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 Review of Systems Review of Systems Constitutional: Denies fever or chills Eyes: Denies redness or eye pain HENT: Denies nasal congestion or sore throat Respiratory: Denies cough or shortness of breath Cardiovascular: Denies chest pain or palpitations GI: Denies abdominal pain or vomiting; reports nausea- now resolved : Denies dysuria or hematuria Musculoskeletal: Denies back pain or joint pain Integument: Denies rash or skin lesions Neurologic: Denies headache, focal weakness or sensory changes; reports altered mental status Complete systems were reviewed and found to be within normal limits, except as documented in this note. Current Medications Current Medications Current Medications Medications (Trade) Dose Ordered Sig/Marta Start Time Stop Time Status Last Admin Dose Admin Sodium Chloride 1,000 ml @ 1,000 mls/hr 1X ONCE 02/07/20 18:15 02/07/20 19:14 DC 02/07/20 18:15 1,000 MLS/HR Allergies Allergies Allergies Coded Allergies Type Severity Reaction Last Updated Verified Penicillins Allergy Intermediate 01/19/19 No Sulfa (Sulfonamide Antibiotics) Allergy Intermediate 01/19/19 No latex Allergy Intermediate 01/19/19 No Physical Exam Physical Exam Constitutional: Well developed, well nourished, no acute distress, non-toxic appearance HENT: Normocephalic, atraumatic, oropharynx moist Eyes: PERRL, EOMI, conjunctiva normal, no discharge, no nystagmus Neck: Normal range of motion, no tenderness, supple Cardiovascular: Heart rate normal, regular rhythm Lungs & Thorax: Bilateral breath sounds clear to auscultation, no wheezing/rales/rhonchi Abdomen: Soft, no tenderness Skin: Warm, dry, no erythema, no rash Extremities: No tenderness, ROM intact, no edema Neurologic: Alert and oriented X 3, normal motor function, normal sensory function, no focal deficits noted, cerebellar function intact Psychologic: Affect normal, judgment normal Current Patient Data Vital Signs Vital Signs Date Time Temp Pulse Resp B/P (MAP) Pulse Ox O2 Delivery O2 Flow Rate FiO2 02/07/20 17:43 98.6 75 18 173/81 (111) 99 Room Air 98.6 Lab Values Laboratory Tests Test 02/07/20 17:57 02/07/20 18:03 02/07/20 18:43 02/07/20 19:09 Glucose (Fingerstick) 77 mg/dL (70-99) White Blood Count 6.5 x10^3/uL (4.0-11.0) Red Blood Count 4.35 x10^6/uL (3.50-5.40) Hemoglobin 11.7 g/dL (12.0-15.5) L Hematocrit 36.7 % (36.0-47.0) Mean Corpuscular Volume 84 fL (79-100) Mean Corpuscular Hemoglobin 27 pg (25-35) Mean Corpuscular Hemoglobin Concent 32 g/dL (31-37) Red Cell Distribution Width 14.6 % (11.5-14.5) H Platelet Count 302 x10^3/uL (140-400) Neutrophils (%) (Auto) 60 % (31-73) Lymphocytes (%) (Auto) 29 % (24-48) Monocytes (%) (Auto) 8 % (0-9) Eosinophils (%) (Auto) 2 % (0-3) Basophils (%) (Auto) 1 % (0-3) Neutrophils # (Auto) 3.9 x10^3/uL (1.8-7.7) Lymphocytes # (Auto) 1.9 x10^3/uL (1.0-4.8) Monocytes # (Auto) 0.5 x10^3/uL (0.0-1.1) Eosinophils # (Auto) 0.1 x10^3/uL (0.0-0.7) Basophils # (Auto) 0.1 x10^3/uL (0.0-0.2) Prothrombin Time 12.0 SEC (11.7-14.0) Prothrombin Time INR 0.9 (0.8-1.1) Activated Partial Thromboplast Time 30 SEC (24-38) Sodium Level 139 mmol/L (136-145) Potassium Level 3.7 mmol/L (3.5-5.1) Chloride Level 101 mmol/L (98-107) Carbon Dioxide Level 29 mmol/L (21-32) Anion Gap 9 (6-14) Blood Urea Nitrogen 21 mg/dL (7-20) H Creatinine 1.4 mg/dL (0.6-1.0) H Estimated GFR (Cockcroft-Gault) 46.0 BUN/Creatinine Ratio 15 (6-20) Glucose Level 89 mg/dL (70-99) Calcium Level 9.0 mg/dL (8.5-10.1) Magnesium Level 2.3 mg/dL (1.8-2.4) Total Bilirubin 0.5 mg/dL (0.2-1.0) Aspartate Amino Transferase (AST) 23 U/L (15-37) Alanine Aminotransferase (ALT) 13 U/L (14-59) L Alkaline Phosphatase 81 U/L (46-116) Ammonia < 10 mcmol/L (11-34) L Creatine Kinase 97 U/L (26-192) Creatine Kinase MB (Mass) 0.7 ng/mL (0.0-3.6) Creatine Kinase MB Relative Index 0.7 % (0-4) Troponin I Quantitative < 0.017 ng/mL (0.000-0.055) Total Protein 7.2 g/dL (6.4-8.2) Albumin 3.9 g/dL (3.4-5.0) Albumin/Globulin Ratio 1.2 (1.0-1.7) Lactic Acid Level 1.6 mmol/L (0.4-2.0) Urine Collection Type Unknown Urine Color Yellow Urine Clarity Clear Urine pH 8.0 (<5.0-8.0) Urine Specific [place] 1.010 (1.000-1.030) Urine Protein Negative mg/dL (NEG-TRACE) Urine Glucose (UA) Negative mg/dL (NEG) Urine Ketones (Stick) Negative mg/dL (NEG) Urine Blood Negative (NEG) Urine Nitrite Negative (NEG) Urine Bilirubin Negative (NEG) Urine Urobilinogen Dipstick 1.0 mg/dL (0.2 mg/dL) Urine Leukocyte Esterase Negative (NEG) Urine RBC 0 /HPF (0-2) Urine WBC 1-4 /HPF (0-4) Urine Squamous Epithelial Cells Few /LPF Urine Bacteria Moderate /HPF (0-FEW) Urine Hyaline Casts Occasional /HPF Urine Mucus Slight /LPF Urine Opiates Screen Neg (NEG) Urine Methadone Screen Neg (NEG) Urine Barbiturates Neg (NEG) Urine Phencyclidine Screen Neg (NEG) Urine Amphetamine/Methamphetamine Neg (NEG) Urine Benzodiazepines Screen Neg (NEG) Urine Cocaine Screen Neg (NEG) Urine Cannabinoids Screen Neg (NEG) Urine Ethyl Alcohol Neg (NEG) Laboratory Tests 02/07/20 18:03 Laboratory Tests 02/07/20 18:03 EKG EKG @1744 NSR at 76bpm, NO ST elevation, QRS 104ms, QT/QTc 362/411ms Radiology/Procedures Radiology/Procedures PROCEDURE: CT HEAD WO CONTRAST PQRS Compliance Statement: One or more of the following individualized dose reduction techniques were utilized for this examination: 1. Automated exposure control 2. Adjustment of the mA and/or kV according to patient size 3. Use of iterative reconstruction technique CT head without contrast 02/07/2020 6:08 PM INDICATION: Altered mental status COMPARISON: CT head 05/18/2019 TECHNIQUE: Multiple axial CT images of the head were obtained from skull base through the vertex without intravenous contrast. FINDINGS: Head: Ventricles, sulci and basal cisterns are within normal limits. There is no hydrocephalus. Griffith-white matter differentiation is normal. There is no acute intracranial hemorrhage. There is no mass, mass effect or midline shift. Posterior fossa is normal in appearance. Visualized portions of the orbits are normal. Paranasal sinuses are well aerated. Mastoid air cells are well aerated. Scalp and calvaria are normal. IMPRESSION: No acute intracranial hemorrhage. Electronically signed by: Vandana Naylor MD (02/07/2020 6:40 PM) [facility] PROCEDURE: CHEST PA & LATERAL Chest radiograph 02/07/2020 7:06 PM INDICATION: Altered mental status COMPARISON: 04/23/2019 TECHNIQUE: Frontal and lateral views of the chest are provided. FINDINGS: The cardiomediastinal silhouette is within normal limits. Left chest wall cardiac monitoring device is present. There are no pleural effusions. There is no pulmonary vascular congestion. There is no pneumothorax. The lungs are clear. There is persistent elevation the right hemidiaphragm. No significant osseous abnormality is identified. IMPRESSION: No acute cardiopulmonary process. Electronically signed by: Vandana Naylor MD (02/07/2020 7:28 PM) [facility] Course & Med Decision Making Course & Med Decision Making Pertinent Labs and Imaging studies reviewed. 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 Patient with history of similar for which she is following Dr. Jose (neurology). Afebrile. NIHSS 0. Labs obtained and posted to chart. WBC, lactic acid, troponin, ammonia all WNL. Creat similar to prior episode in January 2020 per [employer] review. UA without signs of infection. CT head/CXR without acute pr ocess. Patient stable for discharge with outpatient follow-up with PCP/neurology. Discussed findings and plan with patient, who acknowledges understanding and agreement. Dragon Disclaimer Dragon Disclaimer This electronic medical record was generated, in whole or in part, using a voice recognition dictation system. Departure Departure Impression: Primary Impression: Altered mental status Disposition: 01 HOME, SELF-CARE Condition: STABLE Referrals: HESHAM KELLER MD (PCP) HAMZAH JOSE MD Patient Instructions: Altered Mental Status, Nonepileptic Seizures Additional Instructions: Please follow closely with your doctor and neurologist. Problem Qualifiers Primary Impression: Altered mental status Altered mental status type: unspecified Qualified Codes: R41.82 - Altered mental status, unspecified MEYERDE Ziegler Feb 07, 2020 18:26
[2020-02-07 18:34] LABS: BASO # 0.1 x10^3/uL (0.0-0.2); BASO % 1 % (0-3); EOS # 0.1 x10^3/uL (0.0-0.7); EOS % 2 % (0-3); HEMATOCRIT 36.7 % (36.0-47.0); HEMOGLOBIN 11.7 g/dL (12.0-15.5); LYMPH # 1.9 x10^3/uL (1.0-4.8); LYMPH % 29 % (24-48); MEAN CORPUSCULAR HEMOGLOBIN 27 pg (25-35); MEAN CORPUSCULAR HGB CONC 32 g/dL (31-37); MEAN CORPUSCULAR VOLUME 84 fL (79-100); MONO # 0.5 x10^3/uL (0.0-1.1); MONO % 8 % (0-9); NEUT # 3.9 x10^3/uL (1.8-7.7); NEUT % 60 % (31-73); PLATELET COUNT 302 x10^3/uL (140-400); RED BLOOD COUNT 4.35 x10^6/uL (3.50-5.40); RED CELL DISTRIBUTION WIDTH 14.6 % (11.5-14.5); WHITE BLOOD COUNT 6.5 x10^3/uL (4.0-11.0)
[2020-02-07 18:40] LABS: CREATININE 1.4 mg/dL (0.6-1.0); POTASSIUM 3.7 mmol/L (3.5-5.1)
--- NOTE | 2020-02-07 18:43 | RAD ---
RS Compliance Statement: One or more of the following individualized dose reduction techniques were utilized for this examination: 1. Automated exposure control 2. Adjustment of the mA and/or kV according to patient size 3. Use of iterative reconstruction technique CT head without contrast 02/07/2020 6:08 PM INDICATION: Altered mental status COMPARISON: CT head 05/18/2019 TECHNIQUE: Multiple axial CT images of the head were obtained from skull base through the vertex without intravenous contrast. FINDINGS: Head: Ventricles, sulci and basal cisterns are within normal limits. There is no hydrocephalus. Griffith-white matter differentiation is normal. There is no acute intracranial hemorrhage. There is no mass, mass effect or midline shift. Posterior fossa is normal in appearance. Visualized portions of the orbits are normal. Paranasal sinuses are well aerated. Mastoid air cells are well aerated. Scalp and calvaria are normal. IMPRESSION: No acute intracranial hemorrhage. Electronically signed by: Vandana Naylor MD (02/07/2020 6:40 PM) [facility]
[2020-02-07 18:46] LABS: ALBUMIN 3.9 g/dL (3.4-5.0); ALBUMIN/GLOBULIN RATIO 1.2 (1.0-1.7); TOTAL BILIRUBIN 0.5 mg/dL (0.2-1.0); TOTAL PROTEIN 7.2 g/dL (6.4-8.2)
[2020-02-07 19:19] LABS: BILIRUBIN,URINE NEGATIVE (NEG); CLARITY,URINE CLEAR; COLOR,URINE YELLOW; NITRITE,URINE NEGATIVE (NEG); PROTEIN,URINE NEGATIVE (NEG-TRACE)
[2020-02-07 19:25] LABS: BARBITURATES NEG (NEG); BENZODIAZEPINES NEG (NEG); CANNABINOIDS NEG (NEG); COCAINE NEG (NEG); METHADONE NEG (NEG); OPIATES NEG (NEG); PHENCYCLIDINE NEG (NEG)
[2020-02-07 19:27] LABS: BACTERIA,URINE MODERATE /HPF (0-FEW); HYALINE CASTS, URINE OCCASIONAL /HPF; RBC,URINE 0 /HPF (0-2); SQUAMOUS EPITHELIAL CELL,UR FEW /LPF
[2020-02-07 19:28] LABS: AMPHETAMINE/METHAMPHETAMINE NEG (NEG)
--- NOTE | 2020-02-07 19:31 | RAD ---
Chest radiograph 02/07/2020 7:06 PM INDICATION: Altered mental status COMPARISON: 04/23/2019 TECHNIQUE: Frontal and lateral views of the chest are provided. FINDINGS: The cardiomediastinal silhouette is within normal limits. Left chest wall cardiac monitoring device is present. There are no pleural effusions. There is no pulmonary vascular congestion. There is no pneumothorax. The lungs are clear. There is persistent elevation the right hemidiaphragm. No significant osseous abnormality is identified. IMPRESSION: No acute cardiopulmonary process. Electronically signed by: Vandana Naylor MD (02/07/2020 7:28 PM) [facility]
[2020-02-07 19:39] VITALS: BP 215/102
--- NOTE | 2020-02-08 03:25 | EKG ---
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
== END 2020-02-07 19:43 | disposition home or self-care (01) ==
LOC: ER 17:26
DX: R41.82 Altered mental status, unspecified (principal); R11.0 Nausea; I10 Essential (primary) hypertension; Z98.890 Other specified postprocedural states
CPT/HCPCS: 36415; 70450; 71046; 80053; 80307; 81001; 82140; 82553; 82962; 83605; 83735; 84484; 85025; 85610; 85730; 87086; 93005; 96360; 99285; J7030

== ENCOUNTER → 2020-05-08 | Outpatient (CLI) | payer OTHER ==
[~2020-05-08] MED LIST changes: +GADOTERATE 7.5 MMOL/15ML VIAL. IVP ONE
--- NOTE | 2020-05-08 14:11 | KCIC ---
EXAMINATION: Magnetic resonance imaging (MRI) of the lumbar spine without contrast 05/08/2020 12:30 PM HISTORY: Low back pain with prior back surgery. Left-sided radiculopathy. TECHNIQUE: Multiplanar multi-weighted MRI of the lumbar spine was performed without intravenous contrast using the standard lumbar spine protocol. Contrast information: 15 mL gadolinium based contrast. COMPARISON: MRI lumbar spine 10/03/2016. FINDINGS: There is minimal retrolisthesis of T11 on T12. Levoconvex scoliosis of the lumbar spine is identified with apex levocurvature at L4-L5. One of the lumbar spine is normal. Vertebral body heights are maintained. There is moderate to advanced disc height loss at L3-L4 with endplate sclerosis asymmetric to the right. There is disc desiccation at all levels of lumbar spine. No prevertebral edema. Mild right paraspinal edema is noted at L4-L5. Normal aorta is normal in caliber. No suspicious retroperitoneal abnormality is identified. Visualized portions of the sacrum appear intact. L1-L2: Disc is normal in configuration. No significant facet arthropathy. No neuroforaminal or spinal canal stenosis. L2-3: There is disc bulge with left foraminal disc protrusion. Mild facet arthropathy. Moderate left neuroforaminal stenosis. Mild spinal canal stenosis. L3-L4: There is a moderate disc bulge with left far lateral disc protrusion. Moderate facet arthropathy. Severe bilateral neuroforaminal stenosis, right greater than left. Mild spinal canal stenosis. L4-L5: There is a moderate disc bulge with left foraminal disc protrusion. Moderate left and severe right facet arthropathy. Severe right and mild left neural foraminal stenosis. No spinal canal stenosis. L5-S1: There is a disc bulge asymmetric to the left. No evidence for recurrent disc herniation. Left lateral epidural enhancement most favors epidural scar tissue. No residual spinal canal stenosis status post left breast lumpectomy changes. IMPRESSION: 1. Mild degenerative changes of the lumbar spine, as described in detail above. Left partial laminectomy changes at L5-S1 without definite recurrent disc herniation. No significant progression since prior examination. Electronically signed by: Vandana Naylor MD (05/08/2020 2:08 PM) [facility]
== END | disposition home or self-care (01) ==
LOC: KCIC MRI 12:18
PROVIDERS: ATTEND Neurological Surgery
DX: M47.27 Other spondylosis with radiculopathy, lumbosacral region (principal); M43.14 Spondylolisthesis, thoracic region; M41.86 Other forms of scoliosis, lumbar region; M47.896 Other spondylosis, lumbar region; M99.83 Other biomechanical lesions of lumbar region; M51.17 Intervertebral disc disorders with radiculopathy, lumbosacral region
CPT/HCPCS: 72158; A9575

== ENCOUNTER → 2020-05-26 | Outpatient (CLI) | payer OTHER ==
[~2020-05-26] MED LIST changes: +AMLO10TA4 PO; +CLON0.1T PO; -GADOTERATE 7.5 MMOL/15ML VIAL. IVP ONE; +LOSA-73 PO; +methylPREDNISolone ACETATE 40 MG/ML VIAL. ONE; +methylPREDNISolone ACETATE 80 MG/ML VIAL. ONE
--- NOTE | 2020-05-26 09:48 | PAIN ---
DATE OF SERVICE: 05/26/2020 INITIAL CONSULTATION FOR PAIN CLINIC CHIEF COMPLAINT: Low back and left lower extremity pain. HISTORY OF PRESENT ILLNESS: This is a 64-year-old female who presents with history of pain in the low back, left lower extremity for many years, worse over the past 2 years or so and especially over the last 5-6 months. The pain has been increasing with walking, standing, changing positions, radiating across the low back into the left lower extremity, posterior gluteus, posterior thigh, lateral thigh, anterior thigh, medial thigh and lateral calf on the left side, but not into the foot. The patient reports it is constant, sharp, throbbing, shooting with numbness and tingling, worse at night, worse with activity, standing, walking, better with sitting or lying down. She has tried physical therapy, also has had epidural injections in the past, which have helped. The patient reports it awakens her from sleep at least once or twice a night, does not affect her bowel or bladder control, but does affect her ability to walk. She has tried [id number] anti-inflammatories as well, which has been moderately helpful, but not completely helpful. The patient reports no overt motor loss, but significant fatigability with walking, standing and working. The patient reports no loss of motor function completely, but significant fatigability. The patient reports a disability rating from 0-10, 10 being the worst, is a 5 with family home responsibilities, anywhere from 0-5 with recreation, 9 with occupation, 9 with life support activities, and 0 in all other categories. The patient did have MRI scan of the lumbar spine showing multilevel degenerative disk disease with partial laminectomy changes at L5-S1 without definite recurrent disk herniation, L3-L4 shows moderate disk bulge with left far lateral disk protrusion, L4-L5 shows left foraminal disk protrusion with severe right and mild left neural foraminal stenosis. PAST MEDICAL HISTORY: Significant for arthritis, hypertension, weight loss. PREVIOUS SURGERIES: Include hysterectomy, tonsillectomy, breast reduction, cataract extraction, heart recorder placement, lipoma removal, knee scope and lumbar surgery with diskectomy. CURRENT MEDICATIONS: Include Cymbalta, Colace, estradiol, meloxicam, Maxzide, Norvasc, losartan and clonidine. ALLERGIES: THE PATIENT IS ALLERGIC TO LATEX, PENICILLIN AND SULFA. FAMILY HISTORY: Significant for hypertension, depression, hypercholesterolemia. SOCIAL HISTORY: The patient drinks alcohol very rarely. Does not smoke, does not use any illegal, illicit or recreational drugs. 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 REVIEW OF SYSTEMS: The patient's review of systems is positive for those items mentioned in history of present illness. All systems reviewed and otherwise negative. It is complete, full and well documented on the patient's chart. PHYSICAL EXAMINATION: VITAL SIGNS: The patient's blood pressure is 161/75, pulse 77, respirations 18, temperature 98.7 degrees Fahrenheit, height is 57 inches, weight is 171 pounds. GENERAL: The patient is awake, alert, oriented, appropriate, very pleasant demeanor. HEENT: Shows normocephalic, atraumatic. Extraocular movements are intact and symmetrical. Oral cavity: Mucous membranes moist and pink. Dentition is intact. NECK: Shows anterior throat supple without palpable lymphadenopathy noted. Swallow reflex symmetrical. CHEST: Shows normal on inspection. Breath sounds are clear bilaterally. HEART: Shows S1, S2 clear. No murmurs auscultated. ABDOMEN: Soft, nontender, nondistended. No palpable organomegaly is noted. No rebound or guarding demonstrated. BACK: Shows spine grossly in the midline. Normal appearing thoracic kyphosis and some minor flattening of lumbar lordotic curvature. Well-healed surgical scar noted in the midline. Lumbar paraspinous muscle shows symmetrical on inspection, on palpation shows some moderate tenderness diffusely bilaterally going diffusely without significant radiation. The patient has good rotational motion of lumbar spine laterally, right and left, as well as extension and flexion without significant increase in pain. EXTREMITIES: Lower extremities show deep tendon reflexes at 2+ patellar, 1+ tendo-calcaneus tendons. Motor exam is strong with 5/5 dorsiflexion, extension, quadriceps and hamstring flexion. Peripheral pulses are 1+ posterior tibia. No peripheral edema is noted bilaterally. SKIN: Shows warm and dry, good turgor. No edema. No sores, rashes or bruising throughout. IMPRESSION: 1. This is a 64-year-old female with a long history of low back and left lower extremity pain. 2. MRI scan of lumbar spine as noted. 3. Arthritis. 4. Hypertension. PLAN: Options were discussed with the patient including conservative medical managements, physical therapies and interventional techniques. She would like to pursue interventional techniques. We discussed a lumbar epidural steroid injection using description as well as anatomical models to describe the procedure. Risks were then discussed including, but not limited to bleeding, infection, possibility of epidural hematoma and subsequent neurological compromise, dural puncture, headaches, spinal cord and/or nerve damage, side effects of steroid medication and poor results regarding pain control. The patient understands and wished to proceed. The patient will return to clinic in approximately 2 weeks for followup. She was counseled on return appointment, activity level and side effects to be aware of. DIAGNOSES: Lumbar radiculopathy with lumbar degenerative disk disease, lumbar spinal stenosis and lumbar post-laminectomy syndrome. PROCEDURE: Lumbar epidural steroid injection, translaminar approach L4-L5 level using C-arm fluoroscopic guidance under sterile prep and drape using local anesthetic. MEDICATION INJECTED: A total of 120 mg Depo-Medrol plus 10 mL of preservative-free normal saline and 2 mL of contrast. CONDITION AT DISCHARGE: Stable. The patient tolerated the procedure well, had no complications. KLARISSA VOGEL MD DR: SHIN/luz JOB#: [id number] / [id number]
== END | disposition home or self-care (01) ==
LOC: PNCL 08:13
PROVIDERS: ATTEND Anesthesiology
DX: M51.16 Intervertebral disc disorders with radiculopathy, lumbar region (principal); M48.061 Spinal stenosis, lumbar region without neurogenic claudication; M19.90 Unspecified osteoarthritis, unspecified site; I10 Essential (primary) hypertension; Z82.49 Family history of ischemic heart disease and other diseases of the circulatory system; Z81.8 Family history of other mental and behavioral disorders; Z88.8 Allergy status to other drugs, medicaments and biological substances; Z98.890 Other specified postprocedural states; Z79.899 Other long term (current) drug therapy
CPT/HCPCS: 62323; J1030; J1040

== ENCOUNTER 2020-06-02 13:37 | Emergency (ER) | payer OTHER ==
[~2020-06-02] VITALS: Ht 167.6 cm; Wt 77.2 kg
[~2020-06-02 13:37] MED LIST changes: -OXYC-411 PO; +OXYC1TAB20 PO; -methylPREDNISolone ACETATE 40 MG/ML VIAL. ONE; -methylPREDNISolone ACETATE 80 MG/ML VIAL. ONE
[2020-06-02 14:41] VITALS: BP 151/82
--- NOTE | 2020-06-02 15:11 | PHYS DOC ---
Past Medical History Past Medical History: Hypertension Additional Past Medical Histor: HERNIATED DISK Additional Past Surgical Histo: BACK X 3, BREAST REDUCTION, ABD PLASTY,PANCHO RACTS Smoking Status: Never Smoker Alcohol Use: None Drug Use: None General Adult EDM: Chief Complaint: MECHANICAL FALL HPI: HPI: Patient is a 64 year old female who presents to the emergency department after a fall. Patient reports that she was on her cell phone while walking was not paying attention and fell down 6-8 stairs. She reports hitting her head. She is complaining of posterior head, left fourth finger and left lumbar pain. She denies any loss of consciousness, she is not on blood thinners. She is ambulatory with a steady gait She denies loss of bowel or bladder control, saddle anesthesia, numbness, tingling, or weakness of extremities. She also denies dizziness, nausea, and vomiting. She currently rates her pain a 5/10 in h er head and an 8/10 in her back, she denies any radiation of the pain. She denies any alleviating factors. Pt denies taking any medication prior to arrival. Review of Systems: Review of Systems: Constitutional: Denies fever or chills. [] Eyes: Denies change in visual acuity. [] HEENT: Denies neck pain; see HPI Cardiac: Denies chest pain or palpitations Resp: Denies any shortness of breath GI: Denies abdominal pain, nausea, vomiting, or diarrhea. [] : Denies dysuria. [] Musculoskeletal: See HPI Integument: See HPI Neurologic: Denies headache, focal weakness or sensory changes. [] Psychiatric: Denies depression or anxiety. [] Heart Score: Risk Factors: Risk Factors: DM, Current or recent (<one month) smoker, HTN, HLP, family history of CAD, obesity. Risk Scores: Score 0 - 3: 2.5% MACE over next 6 weeks - Discharge Home Score 4 - 6: 20.3% MACE over next 6 weeks - Admit for Clinical Observation Score 7 - 10: 72.7% MACE over next 6 weeks - Early Invasive Strategies Allergies: Allergies: Allergies Coded Allergies Type Severity Reaction Last Updated Verified Penicillins Allergy Intermediate 01/19/19 No Sulfa (Sulfonamide Antibiotics) Allergy Intermediate 01/19/19 No latex Allergy Intermediate 01/19/19 No Physical Exam: PE: Constitutional: Well developed, well nourished, no acute distress, non-toxic appearance. [] HENT: Normocephalic, bilateral external ears normal, nose normal, patient has 3 cm hematoma to her right posterior head. [] Eyes: PERRLA, EOMI, conjunctiva normal, no discharge. [] Neck: Normal range of motion, no stridor. [] Cardiovascular:Heart rate regular rhythm Lungs & Thorax: Respirations even and unlabored, no retractions, no respiratory distress Back: No CVA tenderness, no bony spinal tenderness with palpation, left lumbar paraspinal tenderness Skin: Warm, dry, no erythema, no rash, small abrasion to right posterior head. [] Extremities: No cyanosis, ROM intact, no edema. [] Neurologic: Alert and oriented X 3, no focal deficits noted. [] Psychologic: Affect normal, judgement normal, mood normal. [] EKG: EKG: [] Radiology/Procedures: Radiology/Procedures: PROCEDURE: CT LUMBAR SPINE WO CONTRAST CT LUMBAR SPINE WO CONTRAST History:Reason: fall, head and low back pain / Spl. Instructions: / History: Technique: Noncontrast CT was performed of the lumbar spine. Multiplanar reconstructions were performed. Exposure: One or more of the following individualized dose reduction techniques were utilized for this examination: 1. Automated exposure control 2. Adjustment of the mA and/or kV according to patient size 3. Use of iterative reconstruction technique. Comparison: CT abdomen and pelvis November 27, 2018 and MRI lumbar spine May 08, 2020 Findings: Right mid renal exophytic lesion with increased Hounsfield units compared to simple cyst measures 2.5 x 1.9 cm, increased compared to prior previously measured 1.6 cm. Acute left L3 transverse process fracture. Normal vertebral body height. Leftward curvature of the lumbar spine. Significant degenerative endplate changes L3-L4. T10-T11: Small disc bulge. Advanced left facet arthropathy. Severe left neuroforaminal narrowing. No right neuroforaminal narrowing. No canal narrowing. T11-T12: Disc bulge. Facet arthropathy. No canal narrowing. Mild bilateral neuroforaminal narrowing. T12-L1: Minimal disc bulge. No canal or neuroforaminal narrowing. Facet arthropathy. L1-L2: Small disc bulge. Mild facet arthropathy. No canal or neuroforaminal narrowing. L2-L3: Broad-based disc bulge. Moderate facet arthropathy. Subarticular recess narrowing. No canal narrowing. Mild bilateral neuroforaminal narrowing. L3-L4: Vacuum disc phenomenon. Broad-based disc bulge. Moderate facet arthropathy. Ligamentum flavum thickening. Minimal canal narrowing. Subarticular recess narrowing. Severe right and mild to moderate left neuroforaminal narrowing. L4-L5: Broad-based disc bulge. Vacuum disc phenomenon. Advanced facet arthropathy. Postop changes. No canal narrowing. Severe right and mild left neuroforaminal narrowing. L5-S1: Broad based disc bulge. Postoperative changes. No canal narrowing. Subarticular recess narrowing. Facet arthropathy. Moderate to severe left and mild right neuroforaminal narrowing. Impression: 1. Acute left L3 transverse process fracture. 2. Moderate multilevel thoracolumbar spondylosis most prominent L3-L4 and L4-5. 3. Multilevel neural foraminal narrowing most prominent left T10-T11, right L3-L4 and right L4-L5. 4. Increased right mid renal exophytic lesion, may represent complicated cyst. Recommend repeat ultrasound to confirm. [] PROCEDURE: CT HEAD WO CONTRAST Axial CT images of the head were obtained without IV contrast. Comparison: 02/07/2020. Indication: Fall, hit head now with pain. Findings: No mass effect or hemorrhage is seen. The ventricles are not enlarged or effaced. No midline shift is noted. There is no intra or extra axial fluid collection. No bony or soft tissue abnormality is seen. There is subcutaneous swelling of the posterior soft tissues near the vertex. Impression: 1. No acute intracranial process seen on non- contrast head CT. 2. Mild subcutaneous swelling is identified consistent with stated history of falling. Exposure: One or more of the following individualized dose reduction techniques were utilized for this examination: 1. Automated exposure control 2. Adjustment of the mA and/or kV according to patient size 3. Use of iterative reconstruction technique PROCEDURE: FINGER(S) LEFT Single AP view of the left hand with lateral and oblique views of the digits. INDICATION: Fourth digit pain after fall. FINDINGS: No fracture subluxation dislocation. Normal bony mineralization. No subcutaneous swelling. Course & Med Decision Making: Course & Med Decision Making Pertinent Labs and Imaging studies reviewed. (See chart for details) [id number] with Rosa Isela, nurse practitioner with Dr. [facility]ill[facility]. She advised that no brace or splint needs to be prescribed at this time. Will advise patient that this fracture should heal on its own. Will prescribe patient pain medication for relief of pain and have patient follow-up with her primary care doctor. Patient declined a prescription for hydrocodone, request prescription for ibuprofen only. Advised the patient to place a pillow behind her as needed for comfort. Follow- up with her primary care doctor next week. Return to the ER symptoms worsen. Patient verbalized an understanding of home care, medications, follow-up, and return to ED instructions and was in agreement with the plan of care. [] Dragon Disclaimer: Dragon Disclaimer: This electronic medical record was generated, in whole or in part, using a voice recognition dictation system. Departure Departure Impression: Primary Impression: Closed L3 vertebral fracture Qualified Codes: S32.038A - Other fracture of third lumbar vertebra, initial encounter for closed fracture Additional Impressions: Scalp contusion Qualified Codes: S00.03XA - Contusion of scalp, initial encounter Pain of finger of left hand Disposition: HOME, SELF-CARE Condition: STABLE Referrals: HESHAM KELLER MD (PCP) Patient Instructions: Facial or Scalp Contusion, [id number], Lumbar Fracture Additional Instructions: Fill the prescription and use it as directed. I recommend that you place a pi llow behind you as needed for comfort. Apply ice to sore areas as needed for pain. You may also take Tylenol as needed for pain. Follow-up with your primary care doctor next week. Return to the ER if symptoms worsen. Scripts Ibuprofen (IBUPROFEN) 800 Mg Tablet 800 MG PO PRN Q6HRS PRN for PAIN for 10 Days, #40 TAB 0 Refills take with food Prov: JESSIKA PEDROZA APRN 06/02/20 Justicifation of Admission Dx: Justifications for Admission: Justification of Admission Dx: N/A JESSIKA PEDROZA TELEPRINTER INSTALLER Jun 02, 2020 15:11
--- NOTE | 2020-06-02 15:47 | RAD ---
Single AP view of the left hand with lateral and oblique views of the digits. INDICATION: Fourth digit pain after fall. FINDINGS: No fracture subluxation dislocation. Normal bony mineralization. No subcutaneous swelling. Electronically signed by: Dougie Springer MD (06/02/2020 3:44 PM) [id number]
--- NOTE | 2020-06-02 15:47 | RAD ---
Axial CT images of the head were obtained without IV contrast. Comparison: 02/07/2020. Indication: Fall, hit head now with pain. Findings: No mass effect or hemorrhage is seen. The ventricles are not enlarged or effaced. No midline shift is noted. There is no intra or extra axial fluid collection. No bony or soft tissue abnormality is seen. There is subcutaneous swelling of the posterior soft tissues near the vertex. Impression: 1. No acute intracranial process seen on non- contrast head CT. 2. Mild subcutaneous swelling is identified consistent with stated history of falling. Exposure: One or more of the following individualized dose reduction techniques were utilized for this examination: 1. Automated exposure control 2. Adjustment of the mA and/or kV according to patient size 3. Use of iterative reconstruction technique Electronically signed by: Dougie Springer MD (06/02/2020 3:44 PM) [email or web address]
--- NOTE | 2020-06-02 16:06 | RAD ---
CT LUMBAR SPINE WO CONTRAST History:Reason: fall, head and low back pain / Spl. Instructions: / History: Technique: Noncontrast CT was performed of the lumbar spine. Multiplanar reconstructions were performed. Exposure: One or more of the following individualized dose reduction techniques were utilized for this examination: 1. Automated exposure control 2. Adjustment of the mA and/or kV according to patient size 3. Use of iterative reconstruction technique. Comparison: CT abdomen and pelvis November 27, 2018 and MRI lumbar spine May 08, 2020 Findings: Right mid renal exophytic lesion with increased Hounsfield units compared to simple cyst measures 2.5 x 1.9 cm, increased compared to prior previously measured 1.6 cm. Acute left L3 transverse process fracture. Normal vertebral body height. Leftward curvature of the lumbar spine. Significant degenerative endplate changes L3-L4. T10-T11: Small disc bulge. Advanced left facet arthropathy. Severe left neuroforaminal narrowing. No right neuroforaminal narrowing. No canal narrowing. T11-T12: Disc bulge. Facet arthropathy. No canal narrowing. Mild bilateral neuroforaminal narrowing. T12-L1: Minimal disc bulge. No canal or neuroforaminal narrowing. Facet arthropathy. L1-L2: Small disc bulge. Mild facet arthropathy. No canal or neuroforaminal narrowing. L2-L3: Broad-based disc bulge. Moderate facet arthropathy. Subarticular recess narrowing. No canal narrowing. Mild bilateral neuroforaminal narrowing. L3-L4: Vacuum disc phenomenon. Broad-based disc bulge. Moderate facet arthropathy. Ligamentum flavum thickening. Minimal canal narrowing. Subarticular recess narrowing. Severe right and mild to moderate left neuroforaminal narrowing. L4-L5: Broad-based disc bulge. Vacuum disc phenomenon. Advanced facet arthropathy. Postop changes. No canal narrowing. Severe right and mild left neuroforaminal narrowing. L5-S1: Broad based disc bulge. Postoperative changes. No canal narrowing. Subarticular recess narrowing. Facet arthropathy. Moderate to severe left and mild right neuroforaminal narrowing. Impression: 1. Acute left L3 transverse process fracture. 2. Moderate multilevel thoracolumbar spondylosis most prominent L3-L4 and L4-5. 3. Multilevel neural foraminal narrowing most prominent left T10-T11, right L3-L4 and right L4-L5. 4. Increased right mid renal exophytic lesion, may represent complicated cyst. Recommend repeat ultrasound to confirm. Electronically signed by: Ty Cohen DO (06/02/2020 4:03 PM) [facility]
[2020-06-02] MEDS ORDERED: IBUPROFEN 400 MG TABLET. PO ONE (16:15)
[2020-06-02] MEDS ORDERED: IBUP-1060 PO (17:26)
== END 2020-06-02 18:05 | disposition home or self-care (01) ==
LOC: ER 13:37
DX: S32.038A Other fracture of third lumbar vertebra, initial encounter for closed fracture (principal); S00.02XA Blister (nonthermal) of scalp, initial encounter; M79.645 Pain in left finger(s); R51 Headache; I10 Essential (primary) hypertension; Z88.0 Allergy status to penicillin; Z88.2 Allergy status to sulfonamides; Z91.040 Latex allergy status; W10.8XXA Fall (on) (from) other stairs and steps, initial encounter; Y93.89 Activity, other specified; Y92.89 Other specified places as the place of occurrence of the external cause; Y99.8 Other external cause status
CPT/HCPCS: 70450; 72131; 73140; 99285

== ENCOUNTER → 2020-06-27 | Outpatient (CLI) | payer OTHER ==
[2020-06-02 14:41] VITALS: BP 151/82
[~2020-06-27] MED LIST changes: +IBUP-1060 PO; +IOHEXOL 180 MG/ML 10 ML VIAL. ONE; +methylPREDNISolone ACETATE 40 MG/ML VIAL. ONE; +methylPREDNISolone ACETATE 80 MG/ML VIAL. ONE
--- NOTE | 2020-06-27 09:49 | PDOC ---
Progress Note - Pain Clinic Date of Service: DOS: DATE: 06/27/20 TIME: 09:45 Diagnosis: Dx: Lumbar radiculopathy with lumbar degenerative disc disease lumbar spinal stenosis and post lumbar laminectomy syndrome History or Present Illness: HPI: 64-year-old female returns follow-up status post lumbar epidural steroid patient x1 May 26, 2020 patient was about 50% improvement in the low back and left lower extremity however just after her injection she fell down a flight of stairs at her sister's home and injured her back with a transverse process fracture at the L3 level. Patient reports since the fall it is hard to tell how her back and legs been doing as this did increase the pain fairly significantly patient reports now her pain a 7 on a scale of 10 is worst over the past week 7 on average of 5 at its least. Patient reports is aching becoming more constant with walking standing changing positions better with sitting or laying down generalized not awaken her from sleep at night. Patient reports no new motor or sensory deficits no new bowel or bladder incontinence or other complaints. Physical Exam: VS: Blood pressure is 124/89 pulse 79 respirations 18 temperature is 98.2 F height is 5 foot 7 inches weight is 1 7 1 pounds PE: PHYSICAL EXAMINATION: GENERAL: The patient is awake, alert, oriented, appropriate, very pleasant demeanor HEENT: Shows normocephalic, atraumatic. Extraocular movements are intact and symmetrical. Oral cavity: Mucous membranes moist and pink. NECK: Shows anterior throat supple without palpable lymphadenopathy noted. Swallow reflex symmetrical. CHEST: Shows normal on inspection. Breath sounds are clear bilaterally, no rales rhonchi or wheezes auscultated. HEART: Shows S1, S2 clear. No murmurs auscultated. ABDOMEN: Soft, nontender, nondistended. No palpable organomegaly is noted. No rebound or guarding demonstrated. BACK: Shows spine grossly in the midline. Normal-appearing cervical lordotic curvature. There is slightly increased thoracic kyphosis, some minor flattening of the lumbar lordotic curvature. Lumbar paraspinous muscles show symmetrical on inspection, on palpation shows some moderate tenderness diffusely throughout the upper, middle and lower distribution of the paraspinous muscles bilaterally ,without specific trigger points, without radiation of pain. The patient has good rotational motion of the lumbar spine, both laterally as well as extension and flexion without significant difficulty. No tenderness over the spinous processes, sacrum or sacroiliac regions. EXTREMITIES: Lower extremities show deep tendon reflexes 2+ in the patellar and tendo calcaneus tendons. Motor exam is 5 on a scale of 5 with right dorsiflexion, extension, quadriceps and hamstring flexion and 5/5 on the left. Peripheral pulses are 1+ posterior tibial. No peripheral edema is noted bilaterally. Lower extremities are warm and dry to touch, equal in color and appearance. SKIN: Shows warm and dry, good turgor. No edema. No sores, rashes or bruising throughout. Procedure: Procedure: Options were discussed with the patient. Patient chart was reviewed his current medication regimen updated current review of systems updated today as well. We will proceed with a second in the series lumbar epidural steroid injection today with fluoroscopic guidance. Risks were discussed including but not limited to b leeding infection possibility of epidural hematoma subsequent neurological compromise dural puncture headache spinal cord and or nerve damage side effects of steroid medication and poor results regarding pain control. Patient understands wished to proceed. Patient return to clinic in approximately 2 weeks for follow-up was counseled as to return appointment activity level and side effects to be aware of. Medication Injected: Med Injected: Procedure is lumbar epidural steroid injection under local anesthetic using sterile prep and drape at the L4-5 level using C-arm fluoroscopic guidance in both AP and lateral views medications injected is 120 mg Depo-Medrol + 10 mL preservative-free normal saline and 2 mL contrast- condition at discharge is stable patient tolerated procedure well had no complications. Condition at Discharge: Condition at Discharge: Condition at discharge stable patient tolerated procedure well had no complications. KLARISSA VOGEL MD Jun 27, 2020 09:49
== END | disposition home or self-care (01) ==
LOC: PNCL 09:13
PROVIDERS: ATTEND Anesthesiology
DX: M51.16 Intervertebral disc disorders with radiculopathy, lumbar region (principal); M48.061 Spinal stenosis, lumbar region without neurogenic claudication; I10 Essential (primary) hypertension; Z88.0 Allergy status to penicillin; Z88.2 Allergy status to sulfonamides; Z88.8 Allergy status to other drugs, medicaments and biological substances; Z79.899 Other long term (current) drug therapy; Z82.49 Family history of ischemic heart disease and other diseases of the circulatory system
CPT/HCPCS: 62323; J1030; J1040; Q9965

== ENCOUNTER → 2020-09-20 | Outpatient (CLI) | payer OTHER ==
[~2020-09-20] MED LIST changes: -IOHEXOL 180 MG/ML 10 ML VIAL. ONE; -methylPREDNISolone ACETATE 40 MG/ML VIAL. ONE; -methylPREDNISolone ACETATE 80 MG/ML VIAL. ONE
--- NOTE | 2020-09-20 13:32 | PDOC ---
Progress Note - Pain Clinic Date of Service: DOS: DATE: 09/20/20 TIME: 13:28 Diagnosis: Dx: Lumbar radiculopathy with lumbar degenerative disc disease lumbar spinal stenosis and post lumbar laminectomy syndrome History or Present Illness: HPI: 65-year-old female returns for follow-up status post lumbar epidural steroid injections x2. Most recently seen June 27, 2020. Patient reports about 50% improvement but only lasting for about a week or so after the injection in the low back and left lower extremity. Patient reports pain is getting worse with time activity standing walking changing positions better with sitting or laying down but is waking her from sleep about every 5 hours. Patient recently seen her neurosurgeon who is not recommending any surgery at this time as she would require an extensive fusion and would like her to try other alternatives. Patient rates her pain as an 8 on scale 10 is worse over the past week for an average to its least is a 4 today. Patient scribes pain is cramping constant in the low back rating left lower extremity and radicular pattern in the left L4-5 dermatomal distribution. Patient reports no new motor or sensory deficits no new bowel or bladder incontinence does have some significant fatigability in the left leg with ambulation or standing. Physical Exam: VS: Blood pressure is 107/81 pulse 87 respirations are 18 temperature is 97.7 F height is 5 feet 7 inches weight is 159 pounds PE: PHYSICAL EXAMINATION: GENERAL: The patient is awake, alert, oriented, appropriate, very pleasant demeanor HEENT: Shows normocephalic, atraumatic. Extraocular movements are intact and symmetrical. Oral cavity: Mucous membranes moist and pink. Dentition is intact. NECK: Shows anterior throat supple without palpable lymphadenopathy noted. Swallow reflex symmetrical. CHEST: Shows normal on inspection. Breath sounds clear bilaterally. HEART: Shows S1, S2 clear. No murmurs ABDOMEN: Soft, nontender, nondistended. No palpable organomegaly is noted. No rebound or guarding demonstrated. BACK: Shows spine grossly in the midline. Normal-appearing cervical lordotic curvature. There is slightly increased thoracic kyphosis, some minor flattening of the lumbar lordotic curvature. Well-healed midline surgical scars noted. Lumbar paraspinous muscles show symmetrical on inspection, on palpation shows some moderate tenderness diffusely throughout the upper, middle and lower distribution of the paraspinous muscles, without specific trigger points, without radiation of pain. The patient has good rotational motion of the lumbar spine, both laterally as well as extension and flexion without significant difficulty. No tenderness over the spinous processes, sacrum or sacroiliac regions. EXTREMITIES: Lower extremities show deep tendon reflexes 2+ in the patellar and tendo calcaneus tendons. Motor exam is 5 on a scale of 5 with right dors iflexion, extension, quadriceps and hamstring flexion and 5/5 on the left. Peripheral pulses are 1+ posterior tibial. No peripheral edema is noted bilaterally. Lower extremities are warm and dry to touch, equal in color and appearance SKIN: Shows warm and dry, good turgor. No edema. No sores, rashes or bruising throughout. Procedure: Procedure: Options were discussed with the patient. Patient chart was reviewed as her current medication regimen updated current review of systems updated today as well. [place] possibility of a spinal cord stimulator trial and patient is interested in pursuing this. Patient has had physical therapy has had medication management has had interventional techniques with lumbar epidural steroids and still significant pain returning fairly quickly and persistent radiculopathy and postlaminectomy syndrome. Again patient has recently seen her neurosurgeon is not requesting any surgery at this time. We will make arrangements for preauthorization for spinal cord stimulator temporary leads placement x2. Patient also have psychiatric evaluation for clearance of implantable devices and spinal surgery. Patient to follow-up with the clinic once this is completed. Medication Injected: Med Injected: None Condition at Discharge: Condition at Discharge: Condition at discharge is stable. KLARISSA VOGEL MD Sep 20, 2020 13:32
== END | disposition home or self-care (01) ==
LOC: PNCL 13:00
PROVIDERS: ATTEND Anesthesiology
DX: M51.16 Intervertebral disc disorders with radiculopathy, lumbar region (principal); M48.061 Spinal stenosis, lumbar region without neurogenic claudication; M96.1 Postlaminectomy syndrome, not elsewhere classified; I25.10 Atherosclerotic heart disease of native coronary artery without angina pectoris; I10 Essential (primary) hypertension; E78.00 Pure hypercholesterolemia, unspecified; F32.9 Major depressive disorder, single episode, unspecified; Z79.899 Other long term (current) drug therapy; Z98.890 Other specified postprocedural states; Z82.49 Family history of ischemic heart disease and other diseases of the circulatory system; Z88.0 Allergy status to penicillin; Z88.1 Allergy status to other antibiotic agents; Z91.040 Latex allergy status
CPT/HCPCS: 99212; G0463

== ENCOUNTER → 2020-10-12 | Outpatient (CLI) | payer OTHER ==
[~2020-10-12] MED LIST changes: +GADOTERATE 7.5 MMOL/15ML VIAL. IVP ONE
--- NOTE | 2020-10-12 09:38 | RAD ---
EXAMINATION: Magnetic resonance imaging (MRI) of the lumbar spine with and without contrast 0 8:10 AM HISTORY: Lumbar stenosis TECHNIQUE: Multiplanar multi-weighted MRI of the lumbar spine was performed with and without intraven ous contrast using the standard lumbar spine protocol. Contrast information: 14 mL gadolinium based contrast COMPARISON: CT lumbar spine 06/02/2020, MRI lumbar spine 05/08/2020 FINDINGS: There is minimal retrolisthesis of L5 on S1. Minimal anterolisthesis of L3 on L4. Vertebral body heig hts are maintained. No significant marrow edema is identified. Endplate sclerosis is identified at L3 -L4 with advanced disc height loss. There is disc desiccation at all levels of the lumbar spine, spar ing L1-L2. Conus medullaris terminates at L1. Distal spinal cord signal intensity is normal in all se quences. Disc bulges identified at T11-T12 without significant spinal canal or neuroforaminal stenosi s. There is moderate disc height loss at L4-L5 mild disc height loss L5-S1. Abdominal aorta is normal in caliber. Versus portions of the retroperitoneum appear normal. Visualized sacrum appears intact. L2-L3: There is a disc bulge asymmetric to the left with left foraminal disc protrusion. Moderate fac et arthropathy with ligamentum flavum infolding. Moderate left and mild right neuroforaminal stenosis . Mild to moderate spinal canal stenosis. Findings are stable. L3-L4: There is a circumferential disc bulge. Severe facet arthropathy. Severe right and moderate lef t neural foraminal stenosis. There is narrowing the right lateral recess, similar to prior examinatio n. Mild spinal canal stenosis, not significant changed. L4-L5: Moderate disc bulge with left foraminal and far lateral disc protrusion. Moderate facet arthro chapin. Severe right and moderate left neuroforaminal stenosis. No spinal canal stenosis. Findings are stable. L5-S1: There is a moderate circumferential disc bulge with enhancement in the left ventral epidural s pace just above scar tissue. No definite recurrent disc herniation is identified. Left hemilaminectom y changes are identified. There is no residual left lateral recess stenosis. Moderate left neuroforam inal stenosis. Findings are stable. IMPRESSION: 1. Postoperative changes are identified from left hemilaminectomy changes and microdiscectomy at L5-S 1 with spinal decompression and decompression of the left lateral recess. There is enhancement in the left ventral epidural space suggestive of peripheral scar tissue. No definite recurrent disc herniat ion. There is persistent mass effect on the left neuroforamen resulting in moderate stenosis. 2. Moderate degenerative changes of the lumbar spine, as described in detail above. Findings are not significantly changed since prior examination. Electronically signed by: Vandana Naylor MD (10/12/2020 9:36 AM) RONAK
== END ==
LOC: MRI 08:45
PROVIDERS: ATTEND Neurological Surgery
DX: M47.816 Spondylosis without myelopathy or radiculopathy, lumbar region (principal); M51.26 Other intervertebral disc displacement, lumbar region; M48.07 Spinal stenosis, lumbosacral region
CPT/HCPCS: 72158; A9575

== ENCOUNTER → 2020-11-01 | Outpatient (CLI) | payer OTHER ==
[~2020-11-01] MED LIST changes: -GADOTERATE 7.5 MMOL/15ML VIAL. IVP ONE; +HYDR-3070 PO; +OXYC1TAB15 PO
--- NOTE | 2020-11-01 11:15 | EKG ---
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
[2020-11-01 11:18] LABS: BASO % 1 % (0-3); EOS # 0.2 x10^3/uL (0.0-0.7); EOS % 4 % (0-3); HEMATOCRIT 35.3 % (36.0-47.0); HEMOGLOBIN 11.4 g/dL (12.0-15.5); LYMPH # 1.6 x10^3/uL (1.0-4.8); LYMPH % 27 % (24-48); MEAN CORPUSCULAR HEMOGLOBIN 28 pg (25-35); MEAN CORPUSCULAR HGB CONC 32 g/dL (31-37); MEAN CORPUSCULAR VOLUME 86 fL (79-100); MONO # 0.5 x10^3/uL (0.0-1.1); MONO % 9 % (0-9); NEUT # 3.6 x10^3/uL (1.8-7.7); NEUT % 60 % (31-73); PLATELET COUNT 424 x10^3/uL (140-400); RED CELL DISTRIBUTION WIDTH 14.8 % (11.5-14.5); WHITE BLOOD COUNT 5.9 x10^3/uL (4.0-11.0)
[2020-11-01 11:22] LABS: ALBUMIN 3.4 g/dL (3.4-5.0); GFR 67.5; POTASSIUM 4.3 mmol/L (3.5-5.1); TOTAL BILIRUBIN 0.5 mg/dL (0.2-1.0); TOTAL PROTEIN 6.8 g/dL (6.4-8.2)
[2020-11-01 11:27] LABS: PROTHROMBIN TIME PATIENT 11.8 SEC (11.7-14.0)
== END ==
LOC: SURGPAT 10:32
PROVIDERS: ATTEND Neurological Surgery
DX: Z01.818 Encounter for other preprocedural examination (principal); M48.062 Spinal stenosis, lumbar region with neurogenic claudication; M48.07 Spinal stenosis, lumbosacral region; M54.17 Radiculopathy, lumbosacral region; M54.5 Low back pain; Z20.828 Contact with and (suspected) exposure to other viral communicable diseases
CPT/HCPCS: 80053; 85025; 85610; 85730; 87641; 93005; U0003

== ENCOUNTER 2020-11-06 06:11 | Inpatient (IN) | payer OTHER ==
--- NOTE | 2020-11-02 15:05 | HP ---
ADMIT DATE: 11/06/2020. DATE OF SURGERY: 11/06/2020. HISTORY OF PRESENT ILLNESS: The patient is a pleasant 65-year-old, who has recently returned to work with restrictions and her pain markedly increased. She has significant lower back pain as well as pain in the left lateral anterior thigh and posterior leg. She has trouble sleeping because of pain. Increased activity increases her pain. Sitting is helpful except for when she sits too long that also becomes painful. Physical therapy was of no benefit. She has had lumbar epidural steroid injections without lasting relief. She had 4 lumbar surgeries in the past on the left and have included L3-L4, L4-L5 and L5-S1. PAST MEDICAL HISTORY: Arthritis, hypertension, IBS/C. PAST SURGICAL HISTORY: Lumbar surgery x3, hysterectomy, tonsillectomy, breast biopsy, bilateral cataracts, breast reduction, abdominal surgery, lumbar decompression and microdiskectomy L3-L4, L4-L5 on the right in 01/2017. FAMILY HISTORY: Alzheimer's and hypertension. 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 . Denies substance abuse. Denies tobacco use. Drinks coffee daily. ALLERGIES: SULFA DRUGS, PENICILLIN, AND LATEX. CURRENT MEDICATIONS: Colace, Cymbalta, Maxzide, meloxicam, estradiol and gabapentin. REVIEW OF SYSTEMS: A 12-point review of systems was obtained and is noncontributory except that mentioned above. PHYSICAL EXAMINATION: NEUROSURGERY EXAMINATION: GENERAL APPEARANCE: Alert, pleasant, no acute distress. HEAD: Normocephalic and atraumatic. SKIN: Warm and dry. Well-healed lumbar incision. MUSCULOSKELETAL: Lumbar paraspinal muscle bulk is normal, restricted range of motion of the lumbar spine, [id number] tenderness of the lower lumbar spine with palpation, normal range of motion of the lower extremities bilaterally. EXTREMITIES: No clubbing, cyanosis or edema. NEUROLOGIC: Alert and oriented x 3, normal recent and remote memory. Strength 5/5 in bilateral lower extremities, sensory is intact to light touch in lower extremities bilaterally. Reflexes are present and symmetric in bilateral lower extremities, positive straight leg raising on the left, negative straight leg raising on the right, forward stooped antalgic gait favoring her left leg. IMAGING: I reviewed her lumbar MRI scan. On that study, there are postoperative changes at L3-L4, L4-L5 and L5-S1 on the left. At L4-L5, there is moderately severe lateral recess narrowing at L5-S1, there is lateral recess narrowing, but to a lesser degree. There is scoliosis which is centered at L4-L5. ASSESSMENT/ PLAN: I believe the problems in her lower back are responsible for her lumbar radiculopathy and relatively severe low back pain. To address these problems surgically would require an instrumented fusion extending from L4 to the sacrum. I would combine this with the decompression at L4-L5 and L5-S1 and interbody fusion. At this point; the patient understands. She would like to proceed. We will make the arrangements. ANGELES CASTILLO MD DR: HARESH/luz JOB#: [id number] / [id number] ELIAN
[2020-11-06] VITALS (9 sets, daily range): BP systolic 83–126; BP diastolic 46–82
[~2020-11-06] VITALS: Ht 167.6 cm; Wt 75.0 kg
[~2020-11-06 06:11] MED LIST changes: +BACITRACIN 50,000 UNIT in IV NORMAL SALINE 1000ML BAG 1,000 ML IRR ONE; +METH-562 PO; -METH750T2 PO; -OXYC1TAB15 PO
[2020-11-06] MEDS ORDERED: PROPOFOL 100 ML IV ONE ×2 (06:41→08:23)
[2020-11-06] MEDS ORDERED: DEXAMETHASONE SOD PHOS 20 MG/5 ML VIAL. ONE ×2 (06:43→13:35)
[2020-11-06] MEDS ORDERED: PROPOFOL 10 MG/ML (20ML) VIAL. IV ONE (06:43)
[2020-11-06] MEDS ORDERED: LIDOCAINE 2% PF 5 ML VIAL. ONE (06:43)
[2020-11-06] MEDS ORDERED: ONDANSETRON PF 4 MG/2 ML VIAL. ONE (06:43)
[2020-11-06] MEDS ORDERED: ROCURONIUM 50 MG/5 ML VIAL. ONE (06:44)
[2020-11-06] MEDS: IV RINGERS,LACTATED 1000ML 1,000 ML IV SCH ×2 (06:53→14:30)
[2020-11-06] MEDS ORDERED: HYDROmorphone 2 MG/ML VIAL IV PRN (07:00)
[2020-11-06] MEDS ORDERED: PROCHLORPERAZINE 10 MG/2 ML VIAL. IV PRN (07:00)
[2020-11-06] MEDS ORDERED: LIDOCAINE 1% PF 2 ML VIAL. ID PRN (07:00)
[2020-11-06] MEDS ORDERED: ONDANSETRON PF 4 MG/2 ML VIAL. IV PRN (07:00)
[2020-11-06] MEDS ORDERED: fentaNYL PF VIAL 100 MCG/2 ML VIAL IV PRN (07:00)
[2020-11-06] MEDS ORDERED: THROMBIN TOPICAL 20,000 UNIT SPRAY.SYRN KIT TP ONE (07:02)
[2020-11-06] MEDS ORDERED: KETOROLAC 60 MG/2 ML VIAL. ONE (07:02)
[2020-11-06] MEDS ORDERED: GELATIN SPONGE SIZE 100. ONE (07:02)
[2020-11-06] MEDS ORDERED: LIDOCAINE 1%/EPI 1:100,000 20 ML VIAL. ONE (07:02)
[2020-11-06] MEDS ORDERED: ceFAZolin 2GM PREMIX 2 GM/50 ML BAG IV ONE (08:00)
[2020-11-06] MEDS ORDERED: MIDAZOLAM HCL/PF 2 MG/2 ML VIAL. ONE (08:14)
[2020-11-06] MEDS ORDERED: GLYCOPYRROLATE 1 MG/5 ML VIAL. ONE (08:14)
[2020-11-06] MEDS ORDERED: REMIFENTANIL 2 MG VIAL. IV ONE ×2 (08:15→10:41)
[2020-11-06] MEDS ORDERED: PHENYLEPHRINE 10 MG/ML VIAL. ONE ×2 (08:16→13:16)
[2020-11-06] MEDS ORDERED: VANCOMYCIN 1GM IVPB FOR OMNI 250 ML ONE (08:30)
[2020-11-06] MEDS ORDERED: VANCOMYCIN 1GM IVPB FOR OMNI. ONE (09:00)
--- NOTE | 2020-11-06 09:00 | RAD ---
PQRS Compliance Statement: One or more of the following individualized dose reduction techniques were utilized for this examinat ion: 1. Automated exposure control 2. Adjustment of the mA and/or kV according to patient size 3. Use of iterative reconstruction technique CT LUMBAR SPINE WO 11/06/2020 7:17 AM Indication: Lumbar radiculopathy. Low back pain. COMPARISON: None available. TECHNIQUE: Multiple axial CT images of the lumbar spine are obtained without intravenous contrast. Co laura sagittal reformats are provided. FINDINGS: There is minimal anterolisthesis of L2 on L3. Minimal retrolisthesis of L5 on S1. Levoconvex scoliosi s of the lumbar spine is identified with apex levocurvature at L4-L5. There is advanced disc height l oss at L3-L4 with vacuum disc phenomena and extensive subcortical sclerosis asymmetric to the right a long the convexity of the levocurvature. There is moderate to advanced disc height loss at L4-L5 with vacuum disc phenomenon and mild endplate sclerosis. Mild to moderate disc height loss at L5-S1 and v acuum disc phenomenon. Mild anterior marginal osteophytosis. No acute fracture is identified. Intersp inous degenerative changes are identified, most prominent at T12-L1. Adrenal glands are normal in rafa earance. Kidneys are normal. Abdominal aorta is normal in caliber. Appendix is normal. No suspicious pelvic mass. L1-L2: Disc is normal in configuration. Mild facet arthropathy, left greater than right. Mild left ne uroforaminal stenosis. No spinal canal stenosis. L2-L3: Mild circumferential disc bulge with left foraminal disc protrusion. Moderate facet arthropath y. Moderate left and mild right neuroforaminal stenosis. Mild spinal canal stenosis. L3-L4: There is a posterior disc osteophyte complex with circumferential disc bulge. Severe right and moderate left facet arthropathy. There is distraction of the right facet joint may be secondary to i nflammatory arthropathy. There is ligamentum flavum infolding. Severe right and moderate left neurofo raminal stenosis. Moderate spinal canal stenosis. There is right lateral recess stenosis. L4-L5: There is a posterior disc osteophyte complex with left central disc protrusion. Severe facet a rthropathy with chronic right lamina fracture versus prior laminectomy changes. Severe right and mode rate left neuroforaminal stenosis. Mild spinal canal stenosis. L5-S1: There is a circumferential disc bulge with left central disc extrusion. There is left lateral recess stenosis. Severe facet arthropathy, left greater than right. Severe left and moderate right ne uroforaminal stenosis. No significant spinal canal stenosis. IMPRESSION: Moderate degenerative changes of the lumbar spine, as described in detail above. Electronically signed by: Vandana Naylor MD (11/06/2020 8:57 AM) [id number]
[2020-11-06] MEDS ORDERED: fentaNYL PF VIAL 100 MCG/2 ML VIAL ONE ×2 (13:34→14:48)
[2020-11-06] MEDS ORDERED: KETOROLAC 30 MG/ML VIAL. ONE (13:36)
[2020-11-06] MEDS ORDERED: fentaNYL PF VIAL 100 MCG/2 ML VIAL IVP PRN (14:00)
[2020-11-06] MEDS ORDERED: diphenhydrAMINE HCL 25 MG CAPSULE PO PRN (14:00)
[2020-11-06] MEDS ORDERED: ONDANSETRON PF 4 MG/2 ML VIAL. IVP PRN (14:00)
[2020-11-06] MEDS ORDERED: ACETAMINOPHEN 325 MG TABLET. PO PRN (14:00)
[2020-11-06] MEDS ORDERED: oxyCODONE/APAP 5/325 1 TAB TABLET PO PRN (14:00)
[2020-11-06] MEDS ORDERED: CALCIUM CARBONATE 500 MG TAB.CHEW PO PRN (14:00)
[2020-11-06] MEDS ORDERED: MAG HYDROX/ALUMINUM HYD/SIMETH 30 ML ORAL.SUSP PO PRN (14:00)
[2020-11-06] MEDS ORDERED: MAGNESIUM HYDROXIDE 2,400 MG/30 ML ORAL.SUSP. PO PRN (14:00)
[2020-11-06] MEDS ORDERED: 0.9 % SODIUM CHLORIDE 10 ML DISP.SYRIN. IV PRN (14:00)
[2020-11-06] MEDS ORDERED: NALOXONE 0.4 MG/ML VIAL. IV PRN (14:00)
[2020-11-06] MEDS ORDERED: MORPHINE SULFATE 2 MG/ML VIAL. ONE (14:23)
[2020-11-06] MEDS ORDERED: NEOMY/BACITR/POLYMYXIN OINT PACKET. TP ONE ×2 (14:24→14:45)
[2020-11-06] MEDS: MORPHINE SULFATE 2 MG/ML VIAL. IV PRN ×2 (14:37→14:53)
[2020-11-06] MEDS: fentaNYL PF VIAL 100 MCG/2 ML VIAL IV PRN ×2 (14:54→15:12)
--- NOTE | 2020-11-06 15:09 | OP ---
DATE OF SURGERY: 11/06/2020 PREOPERATIVE DIAGNOSES: Degenerative scoliosis and foraminal narrowing with lateral recess narrowing and disc herniation L4-L5/L5-S1. POSTOPERATIVE DIAGNOSES: Degenerative scoliosis and foraminal narrowing with lateral recess narrowing and disc herniation L4-L5/L5-S1. OPERATIONS PERFORMED: Posterior instrumentation L4 to sacrum, posterolateral fusion L4 to sacrum, hemilaminotomy L4-L5, hemilaminotomy L5-S1, lumbar microdiscectomy L4-L5, microdiscectomy L5-S1. The operation was done with EMG monitoring, SSEP monitoring, fluoroscopy, microscopic dissection, BrainLAB guidance. SURGEON: John Castillo M.D. AUTOMOTIVE PRODUCT SPECIALIST: REYNALDO Fiore assisted with the surgery. She assisted with the exposure, the posterior instrumentation, posterolateral fusion with the decompression and closure. OPERATIVE INDICATIONS: The patient is a pleasant 65-year-old woman who has a long history of problems with her lower back and in the past, she has undergone a total of 3 lumbar microdecompressive surgeries. Currently, she has had a new herniated disc, seen on image at L4-L5 on the left combined with lateral stenosis and disc bulging at L5-S1. There is also degenerative scoliosis. I recommended reoperation with microdiscectomy L4-L5 and L5-S1, possible interbody fusion at this levels and also a posterior instrumentation, posterolateral fusion. She understood the surgery, the risks, technique and expected postoperative course and wished to go ahead. DESCRIPTION OF PROCEDURE: Following general endotracheal anesthesia, the patient was positioned prone on Asad table. Lumbar region prepped and draped in standard fashion. RUSS hose and AV impulse boots were applied for DVT prophylaxis. A microscope was draped. Fluoroscopy was draped and brought into field. Monitoring was established. Vancomycin 1 gram was given about 1 hour prior to surgery. Using fluoroscopic guidance, her previous incision was reopened from the inferior L3 to the sacrum. The BrainLAB Star was attached to the spinous process of S1 and the BrainLAB system was initialized. We then dissected down and carried the paraspinal muscles laterally, placed self-retaining retractors and I exposed the pedicles and the lamina of L4, L5 and S1 using the BrainLAB system on the right side, I drilled the posterior aspect of the pedicles of L4, L5, S1. I cannulated the pedicles in a standard fashion. I tapped and placed pedicle screws without difficulty. During this time, I also excoriated laterally and aspirated 20 mL of bone marrow and I placed allograft bone in the right lateral gutter. I then went to the left side in a similar fashion, I cannulated the pedicles of L4, L5, S1. This was done by first drilling into the posterior aspect of the pedicle using BrainLAB guidance followed by passing the black ball with stimulated EMG monitoring followed by the ball tip probe, followed by tap. I did not yet place screws on the left. I brought in the microscope at this point though and I burred down a generous hemilaminotomy at L4-L5 and L5-S1. At L4-L5, there was a subligamentous disc herniation, which I removed and I worked laterally and removed some of the lateral disc bulging compressing the exiting root. At L5-S1 the disc space was tightly compressed and even with disc miguel angel I was unable to open up the disc space. I did perform a generous transforaminal exposure at L5-S1 and decompressed the L5 root and as well did a hemilaminotomy and decompressed the S1 root and I have also performed a generous discectomy. There was a small amount of residual disc in the disc space that I removed. At this point, then I excoriated the transverse processes laterally on the left side and placed pedicle screws, I distracted on the left to help correct the scoliosis. I exposed the system sequentially. I then irrigated copiously. X-rays looked good. I closed the wound in layers with absorbable suture. The skin was closed with 4-0 subcuticular stitch. I felt that the surgery went very well. JOHN CASTILLO MD DR: HARESH/luz JOB#: [id number] / [id number] ELIAN
--- NOTE | 2020-11-06 15:24 | NUR ---
Arrived to unit by bed from PACU. Awakens easily but drowsy. Lower back dressing is intact with some minimal shadowing noted. New ice pack applied to the incision site. Able to move all extremities. c/o burning at the surgical site. Will give IV pain med. IVF's intact and infusing. SCD's on bilaterally with RUSS's. Side rails up x's 2 with call light in reach. Sister at bedside. Cont. monitor.
[2020-11-06] MEDS: HYDROmorphone 2 MG/ML VIAL IVP PRN ×2 (15:40→20:49)
[2020-11-06] MEDS ORDERED: VANCOMYCIN 1 GM in IV NORMAL SALINE 250ML 250 ML IV ONE (20:00)
[2020-11-06] MEDS: DOCUSATE SODIUM 100 MG CAPSULE. PO SCH (20:48)
[2020-11-06] MEDS: POTASSIUM CL 20MEQ D5-0.45NACL 1,000 ML IV SCH (20:48)
[2020-11-07 02:45] VITALS: BP 105/66
[2020-11-07] MEDS: HYDROmorphone 2 MG/ML VIAL IVP PRN ×4 (03:03→22:35)
[2020-11-07] MEDS: POTASSIUM CL 20MEQ D5-0.45NACL 1,000 ML IV SCH ×3 (03:20→21:21)
[2020-11-07 06:46] VITALS: BP 99/64
[2020-11-07] MEDS: TRIAMTERENE/HCTZ 37.5/25MG TABLET. PO SCH (09:00)
[2020-11-07] MEDS: DOCUSATE SODIUM 100 MG CAPSULE. PO SCH ×3 (09:00→21:00)
[2020-11-07] MEDS: LOSARTAN POTASSIUM 50 MG TABLET. PO SCH (09:00)
[2020-11-07] MEDS: ESTRADIOL 1 MG TABLET. PO SCH (09:37)
[2020-11-07] MEDS: DULoxetine HCL 30 MG CAPSULE.DR PO SCH (09:37)
[2020-11-07 09:50] VITALS: BP 105/57
--- NOTE | 2020-11-07 11:43 | PDOC ---
PROGRESS NOTES Date of Service DATE: 11/07/20 TIME: 11:38 Subjective Subjective POD #1 S/P decompression and instrumented fusion L4-5, L5-S1 back pain, controlled with medication Objective Objective Vital Signs Date Time Temp Pulse Resp B/P (MAP) Pulse Ox O2 Delivery O2 Flow Rate FiO2 11/07/20 09:50 74 18 105/57 (73) Room Air 11/07/20 06:46 97.9 96 97.9 11/06/20 17:10 2.0 Intake and Output 11/07/20 07:00 Intake Total 2800 ml Output Total 1850 ml Balance 950 ml Intake Oral 1050 ml IV Total 1750 ml Output Urine Total 1800 ml Estimated Blood Loss 50 ml Physical Exam General: Alert, Oriented X3, Cooperative MUSCULOSKELETAL: Other (MEYER) Skin: Other (dressing dry and intact, changed per RN) Plan Plan of Care PT Brace D/W RN Comment Review of Relevant I have reviewed the following items rox (where applicable) has been applied. Medications Current Medications Ondansetron HCl (Zofran) 4 mg PRN Q6HRS PRN IV NAUSEA/VOMITING; Start 11/06/20 at 07:00; Stop 11/07/20 at 06:59; Status DC Fentanyl Citrate (Fentanyl 2ml Vial) 25 mcg PRN Q5MIN PRN IV MILD PAIN 1-3; Start 11/06/20 at 07:00; Stop 11/07/20 at 06:59; Status DC Fentanyl Citrate (Fentanyl 2ml Vial) 50 mcg PRN Q5MIN PRN IV MODERATE TO SEVERE PAIN Last administered on 11/06/20at 15:12; Start 11/06/20 at 07:00; Stop 11/07/20 at 06:59; Status DC Morphine Sulfate (Morphine Sulfate) 1 mg PRN Q10MIN PRN IV SEVERE PAIN 7-10 Last administered on 11/06/20at 14:53; Start 11/06/20 at 07:00; Stop 11/07/20 at 06:59; Status DC Ringer's Solution 1,000 ml @ 30 mls/hr Q24H IV Last administered on 11/06/20at 14:30; Start 11/06/20 at 07:00; Stop 11/06/20 at 18:59; Status DC Lidocaine HCl (Xylocaine-Mpf 1% 2ml Vial) 2 ml PRN 1X PRN ID PRIOR TO IV START; Start 11/06/20 at 07:00; Stop 11/07/20 at 06:59; Status DC Hydromorphone HCl (Dilaudid) 0.5 mg PRN Q10MIN PRN IV SEV PAIN, Second choice; Start 11/06/20 at 07:00; Stop 11/07/20 at 06:59; Status DC Prochlorperazine Edisylate (Compazine) 5 mg PACU PRN PRN IV NAUSEA, MRX1; Start 11/06/20 at 07:00; Stop 11/07/20 at 06:59; Status DC Cefazolin Sodium/ Dextrose 50 ml @ 100 mls/hr 1X PREOP PRN IV PRIOR TO PROCEDURE; Start 11/06/20 at 06:00; Stop 11/06/20 at 18:00; Status DC Bacitracin 37238 unit/Sodium Chloride 1,000 ml @ 1,000 mls/hr 1X ONCE IRR Last administered on 11/06/20at 09:45; Start 11/06/20 at 06:00; Stop 11/06/20 at 06:59; Status DC Propofol 100 ml @ As Directed STK-MED ONCE IV ; Start 11/06/20 at 06:41; Stop 11/06/20 at 06:41; Status DC Propofol (Diprivan) 200 mg STK-MED ONCE IV ; Start 11/06/20 at 06:43; Stop 11/06/20 at 06:43; Status DC Lidocaine HCl (Lidocaine Pf 2% Vial) 5 ml STK-MED ONCE .ROUTE ; Start 11/06/20 at 06:43; Stop 11/06/20 at 06:43; Status DC Dexamethasone Sodium Phosphate (Decadron) 20 mg STK-MED ONCE .ROUTE ; Start 11/06/20 at 06:43; Stop 11/06/20 at 06:44; Status DC Ondansetron HCl (Zofran) 4 mg STK-MED ONCE .ROUTE ; Start 11/06/20 at 06:43; Stop 11/06/20 at 06:44; Status DC Rocuronium [place] (Zemuron) 50 mg STK-MED ONCE .ROUTE ; Start 11/06/20 at 06:44; Stop 11/06/20 at 06:44; Status DC Gelatin (Gelfoam Size 100) 1 each STK-MED ONCE .ROUTE Last administered on 11/06/20at 09:45; Start 11/06/20 at 07:02; Stop 11/06/20 at 07:02; Status DC Ketorolac Tromethamine (Toradol Im) 60 mg STK-MED ONCE .ROUTE Last administered on 11/06/20at 09:45; Start 11/06/20 at 07:02; Stop 11/06/20 at 07:02; Status DC Lidocaine/ Epinephrine (LIDOCAINE 1%-EPI 1:100,000 Multi-Dose) 20 ml STK-MED ONCE .ROUTE Last administered on 11/06/20at 09:45; Start 11/06/20 at 07:02; Stop 11/06/20 at 07:02; Status DC Thrombin 20,000 unit STK-MED ONCE TP Last administered on 11/06/20at 09:45; Start 11/06/20 at 07:02; Stop 11/06/20 at 07:02; Status DC Glycopyrrolate (Robinul) 1 mg STK-MED ONCE .ROUTE ; Start 11/06/20 at 08:14; Stop 11/06/20 at 08:14; Status DC Midazolam HCl (Versed) 2 mg STK-MED ONCE .ROUTE ; Start 11/06/20 at 08:14; Stop 11/06/20 at 08:15; Status DC Remifentanil HCl (Ultiva) 2 mg STK-MED ONCE IV ; Start 11/06/20 at 08:15; Stop 11/06/20 at 08:16; Status DC Phenylephrine HCl (Isma-Synephrine Inj) 10 mg STK-MED ONCE .ROUTE ; Start 11/06/20 at 08:16; Stop 11/06/20 at 08:17; Status DC Propofol 100 ml @ As Directed STK-MED ONCE IV ; Start 11/06/20 at 08:23; Stop 11/06/20 at 08:24; Status DC Vancomycin HCl 250 ml @ As Directed STK-MED ONCE .ROUTE ; Start 11/06/20 at 08:30; Stop 11/06/20 at 08:30; Status DC Cefazolin Sodium/ Dextrose (Ancef 2gm Premix) 2 gm STK-MED ONCE IV ; Start 11/06/20 at 08:00; Stop 11/06/20 at 08:46; Status DC Remifentanil HCl (Ultiva) 2 mg STK-MED ONCE IV ; Start 11/06/20 at 10:41; Stop 11/06/20 at 10:41; Status DC Phenylephrine HCl (Isma-Synephrine Inj) 10 mg STK-MED ONCE .ROUTE ; Start 11/06/20 at 13:16; Stop 11/06/20 at 13:16; Status DC Fentanyl Citrate (Fentanyl 2ml Vial) 100 mcg STK-MED ONCE .ROUTE ; Start 11/06/20 at 13:34; Stop 11/06/20 at 13:34; Status DC Dexamethasone Sodium Phosphate (Decadron) 20 mg STK-MED ONCE .ROUTE ; Start 11/06/20 at 13:35; Stop 11/06/20 at 13:35; Status DC Ketorolac Tromethamine (Toradol 30mg Vial) 30 mg STK-MED ONCE .ROUTE ; Start 11/06/20 at 13:36; Stop 11/06/20 at 13:37; Status DC Amlodipine Besylate (Norvasc) 10 mg DAILY PO Last administered on 11/07/20at 09:36; Start 11/07/20 at 09:00 Docusate Sodium (Colace) 500 mg DAILY PO Last administered on 11/07/20at 09:37; Start 11/07/20 at 09:00 Losartan Potassium (Cozaar) 50 mg DAILY PO ; Start 11/07/20 at 09:00 Triamterene/HCTZ (Maxzide 37.5/ 25mg) 1 tab DAILY PO ; Start 11/07/20 at 09:00 Duloxetine HCl (Cymbalta) 60 mg DAILY PO Last administered on 11/07/20at 09:37; Start 11/07/20 at 09:00 Estradiol (Estrace) 0.5 mg DAILY PO Last administered on 11/07/20at 09:37; Start 11/07/20 at 09:00 Fentanyl Citrate (Fentanyl 2ml Vial) 50 mcg PRN Q2HR PRN IVP PAIN; Start 11/06/20 at 14:00 Vancomycin HCl 1 gm/Sodium Chloride 250 ml @ 250 mls/hr 1X ONCE IV Last administered on 11/06/20at 20:48; Start 11/06/20 at 20:00; Stop 11/06/20 at 20:59; Status DC Acetaminophen (Tylenol) 650 mg PRN Q6HRS PRN PO MILD PAIN / TEMP > 100.3'F; Start 11/06/20 at 14:00 Al Hydroxide/Mg Hydroxide (Mylanta Plus Xs) 30 ml PRN Q3HRS PRN PO HEARTBURN / GAS; Start 11/06/20 at 14:00 Calcium Carbonate/ Glycine (Tums) 500 mg PRN Q3HRS PRN PO INDIGESTION; Start 11/06/20 at 14:00 Diphenhydramine HCl (Benadryl) 25 mg PRN Q6HRS PRN PO ITCHING; Start 11/06/20 at 14:00 Naloxone HCl (Narcan) 0.1 mg PRN Q2MIN PRN IV SEE COMMENTS; Start 11/06/20 at 14:00 Sodium Chloride (Normal Saline Flush) 3 ml QSHIFT PRN IV AFTER MEDS AND BLOOD DRAWS Last administered on 11/06/20at 14:30; Start 11/06/20 at 14:00 Potassium Chloride/Dextrose/ Sod Cl 1,000 ml @ 75 mls/hr [id number] IV Last administered on 11/06/20at 20:48; Start 11/06/20 at 14:00 Oxycodone/ Acetaminophen (Percocet 5/325) 1 tab PRN Q4HRS PRN PO MILD PAIN, 1ST CHOICE; Start 11/06/20 at 14:00 Oxycodone/ Acetaminophen (Percocet 5/325) 2 tab PRN Q4HRS PRN PO MODERATE PAIN, SEVERE PAIN; Start 11/06/20 at 14:00 Methocarbamol (Robaxin) 750 mg TID PRN PO MUSCLE SPASMS; Start 11/06/20 at 14:00 Docusate Sodium (Colace) 100 mg BID PO Last administered on 11/06/20at 20:48; Start 11/06/20 at 21:00 Magnesium Hydroxide (Milk Of Magnesia) 2,400 mg PRN Q12HR PRN PO CONSTIPATION; Start 11/06/20 at 14:00 Ondansetron HCl (Zofran) 4 mg PRN Q6HRS PRN IVP NAUESA, 1ST CHOICE; Start 11/06/20 at 14:00 Morphine Sulfate (Morphine Sulfate) 2 mg STK-MED ONCE .ROUTE ; Start 11/06/20 at 14:23; Stop 11/06/20 at 14:24; Status DC Neomycin/ Polymyxin/ Bacitracin (Triple Antibiotic Ointment) 1 pkt STK-MED ONCE TP ; Start 11/06/20 at 14:24; Stop 11/06/20 at 14:24; Status DC Neomycin/ Polymyxin/ Bacitracin (Triple Antibiotic Ointment) 1 pkt 1X ONCE TP Last administered on 11/06/20at 14:37; Start 11/06/20 at 14:45; Stop 11/06/20 at 14:46; Status DC Fentanyl Citrate (Fentanyl 2ml Vial) 100 mcg STK-MED ONCE .ROUTE ; Start 11/06/20 at 14:48; Stop 11/06/20 at 14:48; Status DC Hydromorphone HCl (Dilaudid) 2 mg PRN Q4HRS PRN IVP SEVERE PAIN Last administered on 11/07/20at 09:34; Start 11/06/20 at 15:15 Active Scripts Active Reported Hydrocodone-Apap 7.5-300 (Hydrocodone Bit/Acetaminophen) 1 Each Tablet 1 Tab PO PRN TID PRN MDD 3 Tablet(s) 30 Days Colace (Docusate Sodium) 100 Mg Capsule 500 Mg PO DAILY Cymbalta (Duloxetine Hcl) 60 Mg Capsule.dr 1 Cap PO DAILY Norvasc (Amlodipine Besylate) 10 Mg Tablet 10 Mg PO DAILY Losartan Potassium 50 Mg Tablet 50 Mg PO DAILY Estradiol 0.5 Mg Tablet 1 Tab PO DAILY Meloxicam 15 Mg Tablet 1 Tab PO DAILY Maxzide 37.5 Mg-25 Mg Tablet (Triamterene/Hydrochlorothiazid) 1 Each Tablet 1 Tab PO DAILY Vitals/I & O Vital Sign - Last 24 Hours 11/06/20 11/06/20 11/06/20 11/06/20 14:01 14:01 14:16 14:31 Temp 98.0 98.0 Pulse 95 80 68 Resp 20 20 20 B/P (MAP) 147/86 131/71 149/82 Pulse Ox 100 100 100 O2 Delivery Mask Simple Mask Simple Mask Simple Mask O2 Flow Rate 10 10 10 10 11/06/20 11/06/20 11/06/20 11/06/20 14:37 14:51 14:53 14:54 Pulse 70 Resp 20 20 20 20 B/P (MAP) 148/80 Pulse Ox 100 97 100 100 O2 Delivery Simple Mask Room Air Simple Mask Simple Mask O2 Flow Rate 10.0 10.0 10.0 11/06/20 11/06/20 11/06/20 11/06/20 15:06 15:12 15:25 15:40 Temp 97.0 98.0 97.0 98.0 Pulse 80 83 Resp 20 20 18 16 B/P (MAP) 130/70 126/82 (97) Pulse Ox 96 99 97 94 O2 Delivery Room Air Room Air Room Air 11/06/20 11/06/20 11/06/20 11/06/20 15:40 15:47 15:55 16:10 Pulse 65 70 Resp 20 16 B/P (MAP) 126/77 (93) 108/ Pulse Ox 97 94 O2 Delivery Room Air Room Air Nasal Cannula Nasal Cannula O2 Flow Rate 2.0 2.0 11/06/20 11/06/20 11/06/20 11/06/20 16:10 16:40 17:10 18:10 Pulse 66 69 81 84 Resp 16 16 16 16 B/P (MAP) 106/65 (79) 114/65 (81) 108/73 (85) 100/59 (73) Pulse Ox 97 99 99 95 O2 Delivery Nasal Cannula Nasal Cannula Nasal Cannula Room Air O2 Flow Rate 2.0 2.0 2.0 11/06/20 11/06/20 11/06/20 11/06/20 19:07 20:00 20:49 21:20 Temp 97.7 97.7 Pulse 91 Resp 16 20 16 B/P (MAP) 111/77 (88) Pulse Ox 98 O2 Delivery Room Air Room Air Room Air Room Air 11/06/20 11/07/20 11/07/20 11/07/20 23:00 02:45 03:03 06:46 Temp 97.6 97.9 97.9 97.6 97.9 97.9 Pulse 59 74 67 Resp 18 20 20 18 B/P (MAP) 83/46 (58) 105/66 (79) 99/64 (76) Pulse Ox 93 98 96 O2 Delivery Room Air Room Air Room Air Room Air 11/07/20 11/07/20 11/07/20 11/07/20 08:10 09:34 09:36 09:50 Pulse 61 74 Resp 20 18 B/P (MAP) 105/57 105/57 (73) O2 Delivery Room Air Room Air Room Air Intake and Output 11/06/20 11/06/20 11/07/20 15:00 23:00 07:00 Intake Total 1000 ml 900 ml 900 ml Output Total 1450 ml 200 ml 200 ml Balance -450 ml 700 ml 700 ml Justifications for Admission Other Justification ANGELES CASTILLO MD Nov 07, 2020 11:43
[2020-11-07] MEDS: oxyCODONE/APAP 5/325 1 TAB TABLET PO PRN ×2 (12:20→19:42)
[2020-11-07 12:21] VITALS: BP 100/60
[2020-11-07 19:45] VITALS: BP 106/54
[2020-11-07 22:28] VITALS: BP 97/59
[2020-11-08] MEDS: oxyCODONE/APAP 5/325 1 TAB TABLET PO PRN ×5 (03:58→21:13)
[2020-11-08 06:42] VITALS: BP 134/61
[2020-11-08] MEDS: ESTRADIOL 1 MG TABLET. PO SCH (08:21)
[2020-11-08] MEDS: DULoxetine HCL 30 MG CAPSULE.DR PO SCH (08:26)
[2020-11-08] MEDS: METHOCARBAMOL 750 MG TABLET PO PRN ×2 (08:26→15:51)
[2020-11-08] MEDS: DOCUSATE SODIUM 100 MG CAPSULE. PO SCH ×2 (08:26→09:00)
[2020-11-08] MEDS: TRIAMTERENE/HCTZ 37.5/25MG TABLET. PO SCH (09:00)
[2020-11-08] MEDS: LOSARTAN POTASSIUM 50 MG TABLET. PO SCH (09:00)
[2020-11-08 11:00] VITALS: BP 135/64
[2020-11-08 15:29] VITALS: BP 122/71
[2020-11-08 19:02] VITALS: BP 97/57
[2020-11-08] MEDS: POTASSIUM CL 20MEQ D5-0.45NACL 1,000 ML IV SCH (19:20)
[2020-11-08] MEDS ORDERED: NEOMY/BACITR/POLYMYXIN OINT PACKET. TP SCH (21:00)
[2020-11-08] MEDS: NEOMY/BACITR/POLYMYXIN OINT PACKET. TP SCH (21:12)
[2020-11-09 02:00] VITALS: BP 106/62
[2020-11-09] MEDS: oxyCODONE/APAP 5/325 1 TAB TABLET PO PRN ×3 (04:24→15:04)
[2020-11-09 06:02] VITALS: BP 125/75
[2020-11-09] MEDS: METHOCARBAMOL 750 MG TABLET PO PRN (07:27)
[2020-11-09] MEDS: DOCUSATE SODIUM 100 MG CAPSULE. PO SCH (08:48)
[2020-11-09] MEDS: DULoxetine HCL 30 MG CAPSULE.DR PO SCH (08:48)
[2020-11-09 08:50] VITALS: BP 108/68
[2020-11-09] MEDS: NEOMY/BACITR/POLYMYXIN OINT PACKET. TP SCH (08:50)
[2020-11-09] MEDS: ESTRADIOL 1 MG TABLET. PO SCH (08:53)
[2020-11-09] MEDS: TRIAMTERENE/HCTZ 37.5/25MG TABLET. PO SCH (09:00)
[2020-11-09] MEDS: LOSARTAN POTASSIUM 50 MG TABLET. PO SCH (09:00)
--- NOTE | 2020-11-09 09:00 | NUR ---
Ambulating hallways and returning back to bed. Pt feeling tired this am. Cont. monitor.
[2020-11-09 11:25] VITALS: BP 121/79
[2020-11-09] MEDS ORDERED: METH-562 PO (13:13)
[2020-11-09] MEDS ORDERED: OXYC1TAB15 PO (13:13)
--- NOTE | 2020-11-09 13:14 | DISCH ---
DISCHARGE INSTRUCTIONS Condition on Discharge Condition on Discharge: Stable Activity After Discharge Activity Instructions for Disc: Activity as tolerated, Avoid exertion, Prog ressive ambulation Bathing Instructions: Shower-keep dressing dry, No Tub Bath until see Lifting Instructions after Dis: No heavy lifting, No pulling or pushing, Do not lift >10 pounds Exercise Instruction after Dis: Exercise per therapy, Progress as tolerated Driving Instructions after Dis: Do not drive Weight Bearing Status after Di: No restrictions Diet after Discharge Diet after Discharge: Regular Additional Diet Restrictions: resume home diet Diet Texture: Regular Liquid Texture: Thin Liquid Swallowing Supervision: None needed Wound Incision Care Wound/Incision Care: Ice to area for comfort, Change dressing, May get incision wet Other wound/incision instructi: may remove dressing when dry, no soaking Contacting the DRJazmin after DC Call your doctor for: Concerns you may have Follow-Up Follow Up With: Dr. Franks in 10-14 days [phone] Treatment/Equipment after DC Adaptive Equipment Issued: ANGELES Díaz MD Nov 09, 2020 13:14
--- NOTE | 2020-11-09 13:45 | NUR ---
Feeling better this afternoon. Cont. monitor.
[2020-11-09 15:10] VITALS: BP 96/70
--- NOTE | 2020-11-09 15:48 | NUR ---
Discharge instructions given with prescriptions. Answered questions and concerns. Verbalized understanding. Pt discharge home accompanied by sister. Escorted out by w/c.
--- NOTE | 2020-11-09 17:10 | PATHOLOGY ---
[facility] Accession Number: [id number] . 01 Material submitted: . back - LUMBAR DECOMPRESSION . 01 Clinical history: . LUMBAR STENOSIS,RADICULOPATHY,LOW BACK PAIN . 02 Diagnosis: Segments of fibrocartilaginous, fibroadipose, and skeletal muscle tissue and bone, lumbar decompression: - Degenerative changes of fibrocartilaginous tissue. (MARLEY:mayank; 11/09/2020) MBR 11/09/2020 1625 Local . 02 Comment: There is no evidence of an acute inflammatory process or malignancy. (MARLEYM:mayank; 11/09/2020) . 02 Electronically signed: . Roland Kelley MD, Pathologist NPI- [id number] . 01 Gross description: . The specimen is received in formalin, labeled "White, Lorena, lumbar decompression" and consists of bone and guerrero-brown tissue fragments measuring 4.5 x 3.5 x 0.8 cm. A medical billing representative portion is submitted in A1 following decalcification. (MASHAY; 11/08/2020) SYU/SYU 11/08/2020 1104 Local . 02 Pathologist provided ICD-10: M99.73, M54.10, M54.9 . 02 CPT . 178452, 587387 Specimen Comment: A courtesy copy of this report has been sent to [phone] Specimen Comment: Report sent to Performed at: 01 [facility] [address] [place] [id number] MD Eduardo Byrd MD Phone: [phone] Performed at: 02 [facility] [address] [place], [place] [id number] MD Roland Kelley MD Phone: [phone]
--- NOTE | 2020-11-09 18:31 | DS ---
DATE OF DISCHARGE: 11/09/2020 DISCHARGE DIAGNOSES: Degenerative scoliosis and foraminal narrowing with lateral recess narrowing and disk herniation at L4-L5/L5-S1. OPERATION PERFORMED: Posterior instrumentation L4 to sacrum, posterolateral fusion L4 to sacrum, hemilaminotomy L4-L5, hemilaminotomy L5-S1, lumbar microdiskectomy L4-L5, microdiskectomy L5-S1. HISTORY OF PRESENT ILLNESS: The patient is a pleasant 65-year-old woman who has a long history of problems with her lower back and in the past has undergone a total of three lumbar micro decompressive surgeries. Currently, she developed a herniated disk at L4-L5 on the left, combined with lateral stenosis and disk bulging at L5-S1. She also has degenerative scoliosis. I recommended a reoperation with micro decompressions and posterior instrumentation and fusion at L4-L5 and L5-S1. She understood the surgery and the risk and the postoperative course and wished to proceed. HOSPITAL COURSE: She was admitted to the floor postoperatively. She has done well. She has been up ambulating in the room and in the halls. Physical therapy was initiated and instruction was given to her regarding her activities. Her pain has improved. It is well controlled with pain medication. She is in good condition to discharge home. DISCHARGE MEDICATIONS: She will resume her medications per the MRAD. DISCHARGE INSTRUCTIONS: She was instructed regarding incision care, activity restrictions and expectations for the next several weeks. She will follow up in our office in 2 weeks. She understands to call with any questions or concerns. ANGELES CASTILLO MD DR: SHADE/luz JOB#: [id number] / [id number]
== END 2020-11-09 15:48 | disposition home or self-care (01) | DRG 458 ==
LOC: OPSVCIP 06:11 → 4 SOUTHEST 15:33
PROVIDERS: ADMIT Neurological Surgery; ATTEND Neurological Surgery
PROC: 0SG30K1 Fusion of Lumbosacral Joint with Nonautologous Tissue Substitute, Posterior Approach, Posterior Column, Open Approach (ICD-10-PCS; 2020-11-06)
PROC: 01NB0ZZ Release Lumbar Nerve, Open Approach (ICD-10-PCS; 2020-11-06)
PROC: 01NR0ZZ Release Sacral Nerve, Open Approach (ICD-10-PCS; 2020-11-06)
PROC: 0SB20ZZ Excision of Lumbar Vertebral Disc, Open Approach (ICD-10-PCS; 2020-11-06)
PROC: 0SB40ZZ Excision of Lumbosacral Disc, Open Approach (ICD-10-PCS; 2020-11-06)
PROC: 4A11X4G Monitoring of Peripheral Nervous Electrical Activity, Intraoperative, External Approach (ICD-10-PCS; 2020-11-06)
PROC: 0SG00K1 Fusion of Lumbar Vertebral Joint with Nonautologous Tissue Substitute, Posterior Approach, Posterior Column, Open Approach (ICD-10-PCS; principal; 2020-11-06 08:30)
DX: M48.062 Spinal stenosis, lumbar region with neurogenic claudication (principal); M41.50 Other secondary scoliosis, site unspecified; I10 Essential (primary) hypertension; M48.07 Spinal stenosis, lumbosacral region; M51.26 Other intervertebral disc displacement, lumbar region; M54.17 Radiculopathy, lumbosacral region; Z82.0 Family history of epilepsy and other diseases of the nervous system; Z82.49 Family history of ischemic heart disease and other diseases of the circulatory system; Z90.710 Acquired absence of both cervix and uterus; M19.90 Unspecified osteoarthritis, unspecified site; Z98.42 Cataract extraction status, left eye; Z98.41 Cataract extraction status, right eye; Z88.0 Allergy status to penicillin; Z91.040 Latex allergy status
CPT/HCPCS: 36415; 72131; 76000; 86850; 86900; 86901; 88304; 88311; A4314; C1713; C9362; J0690; J1100; J1170; J1885; J2250; J2270; J2370; J2405; J2704; J3010; J3370; J3480; J3490; J7030; J7050; J7120; 97110-GP; 97116-GP; 97530-GP; 97535-GO; G0378

== ENCOUNTER → 2021-01-24 | Outpatient (CLI) | payer OTHER ==
[~2021-01-24] MED LIST changes: -BACITRACIN 50,000 UNIT in IV NORMAL SALINE 1000ML BAG 1,000 ML IRR ONE; +OXYC1TAB15 PO
--- NOTE | 2021-01-24 12:04 | RAD ---
XR LUMBAR SPINE 2-3V History: Reason: STATUS-POST LUMBAR FUSION. / Spl. Instructions: / History: Comparison: CT lumbar spine 11/06/2020. Technique: 3 views of lumbar spine Findings: There has been interval posterior spinal fixation of L4-S1. No evidence of screw loosening, fracture or malposition. There is no evidence for fracture. Levoconvex curvature with apex at L3. Mild anterolisthesis of L3 on L4. Advanced sclerotic degenerative endplate changes at L3-L4 with severe disc height loss. Facet hypertrophy L3-L4 through L5-S1. Soft tissues are unremarkable. IMPRESSION: 1. Postsurgical changes from L4-S1 posterior spinal fixation. No evidence of postoperative complicat ion. 2. Adjacent segment degenerative disease at L3-L4. Electronically signed by: Yoseph Edge MD (01/24/2021 12:01 PM) [facility]
== END ==
LOC: RAD 08:43
PROVIDERS: ATTEND Neurological Surgery
DX: M47.817 Spondylosis without myelopathy or radiculopathy, lumbosacral region (principal); M51.36 Other intervertebral disc degeneration, lumbar region; Z98.1 Arthrodesis status
CPT/HCPCS: 72100

== ENCOUNTER → 2021-03-05 | Outpatient (CLI) | payer OTHER ==
--- NOTE | 2021-03-06 08:15 | RAD ---
EXAM: AP, lateral and lumbosacral spot views of the lumbar spine DATE: 03/05/2021 11:15 AM INDICATION: Low back pain COMPARISON: 01/24/2021 FINDINGS: Posterolateral fusion L4-S1. Lucency through one of the S1 pedicle screw suspicious for pedicle screw fracture and can be further assessed by CT. Severe L3-4, L4-5 and L5-S1 disc height loss. Facet degenerative changes are seen. No spndylolisthesi s. Mild L3-4 disc height loss. IMPRESSION: 1. Equivocal fracture through the S1 pedicle screw. 2. No acute fracture. 3. Degenerative changes of the lumbar spine. Electronically signed by: Magdy Bowman MD (03/06/2021 8:13 AM) [id number]
== END ==
LOC: RAD 10:42
PROVIDERS: ATTEND Neurological Surgery
DX: S32.14XA Type 1 fracture of sacrum, initial encounter for closed fracture (principal); M47.816 Spondylosis without myelopathy or radiculopathy, lumbar region; X58.XXXA Exposure to other specified factors, initial encounter; Y93.89 Activity, other specified; Y92.89 Other specified places as the place of occurrence of the external cause; Y99.8 Other external cause status
CPT/HCPCS: 72100

== ENCOUNTER → 2021-03-12 | Outpatient (CLI) | payer OTHER ==
--- NOTE | 2021-03-12 14:32 | RAD ---
CT LUMBAR SPINE WO History:Reason: BACK PAIN, BROKEN SACRAL Technique: Noncontrast CT was performed of the lumbar spine. Multiplanar reconstructions were perform ed. Comparison: Lumbar spine radiographs 03/05/2021, 01/24/2021. CT lumbar spine 11/06/2020 Findings: There are 5 nonrib-bearing lumbar vertebral segments. Postsurgical features from L4-S1 posterior spin al fixation with the left laminotomies. No evidence of screw loosening or malposition. The described plain film appearance of possible S1 pedicle screw fracture is not seen on CT. Interspinous degenerative changes redemonstrated throughout the lower thoracolumbar spine. No spondyl olisthesis. Mild levoconvex curvature. T12-L1: Mild disc height loss and facet hypertrophy. No significant spinal canal or neural foraminal stenosis. L1-L2: Mild facet degenerative changes. No significant spinal canal or neural foraminal stenosis. L2-L3: Disc height loss and disc bulge with moderate facet hypertrophy causes moderate left, mild ri ght neural foraminal stenosis. Mild spinal canal stenosis. L3-L4: Near complete disc height loss, disc bulge and facet hypertrophy. Sclerotic degenerative endp late changes. Moderate to severe right, mild left neural foraminal stenosis. Moderate canal stenosis. L4-L5: Posterior fixation across this level. Severe disc height loss and facet hypertrophy. Left nj inectomy. Severe right, moderate left neural foraminal stenosis. L5-S1: Posterior fixation across. Severe disc height loss and facet hypertrophy. Left laminectomy. S oft tissue in the left neural foramina may represent granulation tissue or residual disc. Moderate to severe right neural foraminal stenosis. Impression: 1. Posterior spinal fixation L4-S1 without evidence of hardware loosening. No pedicle screw fracture identified. Appearance on comparison radiograph may be artifactual versus fracture lucency below the resolution of this CT. 2. Degenerative and post surgical changes of the lumbar spine with potential for symptomatic relatio nships at multiple levels as above. Exposure: One or more of the following individualized dose reduction techniques were utilized for thi s examination: 1. Automated exposure control 2. Adjustment of the mA and/or kV according to patient size 3. Use of iterative reconstruction technique. Electronically signed by: Yoseph Edge MD (03/12/2021 2:29 PM) [facility]
== END ==
LOC: CT 13:15
PROVIDERS: ATTEND Neurological Surgery
DX: T84.296A Other mechanical complication of internal fixation device of vertebrae, initial encounter (principal); M47.817 Spondylosis without myelopathy or radiculopathy, lumbosacral region; M48.07 Spinal stenosis, lumbosacral region
CPT/HCPCS: 72131

== ENCOUNTER → 2021-05-09 | Outpatient (CLI) | payer OTHER ==
[~2021-05-09] MED LIST changes: -DULO60CA6 PO; +DULO60CA7 PO; +REGADENOSON 0.4 MG/5 ML DISP.SYRIN. IV ONE
--- NOTE | 2021-05-10 09:29 | CARD ---
MR#: [id number] Date of Study: 05/09/2021 Ordering Physician: BENNIE HOUSTON, Referring Physician: BENNIE HOUSTON, Tech: Micehlle Guillaume [facility] APPROVED REPORT EXAM: Two-dimensional and M-mode echocardiogram with Doppler and color Doppler. Other Information Quality : GoodHR: 54bpm Rhythm : NSR INDICATION 2D DIMENSIONS RVDd3.3 (2.9-3.5cm)Left Atrium(2D)3.7 (1.6-4.0cm) IVSd1.3 (0.7-1.1cm)Aortic Root(2D)3.4 (2.0-3.7cm) LVDd4.1 (3.9-5.9cm)LVOT Diameter2.4 (1.8-2.4cm) PWd1.5 (0.7-1.1cm)LVDs2.7 (2.5-4.0cm) FS (%) 35.7 %SV49.8 ml LVEF(%)65.6 (>50%) Aortic Valve AoV Peak Olivier.125.0cm/sAoV VTI30.7cm AO Peak GR.6.3mmHgLVOT Peak Olivier.79.1cm/s AO Mean GR.3mmHgAVA (VMAX)2.78cm2 Mitral Valve MV E Gkhgpvsa67.6cm/sMV DECEL [id number] MV A Inbaubks01.4cm/sE/A Ratio0.6 Pulmonary Valve PV Peak Kitkxxca227.7cm/s Tricuspid Valve TR P. [id number]/sTR Peak Gr.26mmHg LEFT VENTRICLE The left ventricle is normal size. There is mild concentric left ventricular hypertrophy. The left ve ntricular systolic function is normal and the ejection fraction is within normal range. Estimated eje ction fraction 60-65%. There is normal LV segmental wall motion. Transmitral Doppler flow pattern is Grade I-abnormal relaxation pattern. RIGHT VENTRICLE The right ventricle is normal size. There is normal right ventricular wall thickness. The right ventr icular systolic function is normal. ATRIA The left atrium size is normal. The right atrium size is normal. The interatrial septum is intact wit h no evidence for an atrial septal defect or patent foramen ovale as noted on 2-D or Doppler imaging. AORTIC VALVE The aortic valve is normal in structure and function. Doppler and Color Flow revealed no significant aortic regurgitation. There is no significant aortic valvular stenosis. MITRAL VALVE The mitral valve is normal in structure and function. There is no evidence of mitral valve prolapse. There is no mitral valve stenosis. Doppler and Color-flow revealed mild mitral regurgitation. TRICUSPID VALVE The tricuspid valve is normal in structure and function. Doppler and Color Flow revealed mild tricusp id regurgitation. Estimated PAP 30 mmHg. There is no tricuspid valve stenosis. PULMONIC VALVE Doppler and Color Flow revealed moderate pulmonic valvular regurgitation. There is no pulmonic valvul ar stenosis. GREAT VESSELS The aortic root is normal in size. The ascending aorta is normal in size. The IVC is normal in size a nd collapses >50% with inspiration. PERICARDIAL EFFUSION There is no evidence of significant pericardial effusion. Critical Notification Critical Value: No <Conclusion> The left ventricular systolic function is normal and the ejection fraction is within normal range. E stimated ejection fraction 60-65%. There is normal LV segmental wall motion. Doppler and Color Flow revealed moderate pulmonic valvular regurgitation. Signed by : Cheikh Robledo, Electronically Approved : 05/10/2021 09:29:33
--- NOTE | 2021-05-10 09:41 | RAD ---
MR#: [id number] Date of Study: 05/09/2021 Ordering Physician: BENNIE HOUSTON, Referring Physician: LOULOU KAPLAN Tech: RT Agnes (R) (N) APPROVED REPORT Test Type: Pharmacological Stress Nurse/Tech: Jamie Duff RN Test Indications: Near Syncope Cardiac History: See EMR. Medications: See EMR. Medical History: See EMR. Resting ECG: SR Resting Heart Rate: 52 bpm Resting Blood Pressure: 139/71mmHg Pretest Chest Pain: No chest pain Nurse/Tech Notes Lungs CTA, Heart tones regular. Consent: The procedure was explained to the patient in lay terms. Informed consent was witnessed. Javier eout was entered into [employer]. History and Stress Test performed by [facility]. Details Pharmacologic stress testing was performed using 0.4mg per 5ml of regadenoson given intravenously ove r 7-10 seconds. Stress Symptoms No chest pain or symptoms. POST EXERCISE Reason for Termination: Infusion complete Max HR: 89 bpm Max Blood Pressure: 140/61mmHg Blood Pressure response to exercise: Normal blood pressure response during stress. Heart Rate response to exercise: WNL Chest Pain: No. Arrhythmia: No. ST Change: No. INTERPRETATION Stress EKG Conclusion: No evidence of stress induced EKG changes. Imaging Protocol IMAGE PROTOCOL: Rest Tc-99m/stress Tc-99m 1 day Rest: Stress: Viability: Radiopharm.Tc99m VaxnhlbdiBi59v Sestamibi Dose9.8mCi 31mCi Duration 13min. 13min. Img Date 05/09/2021 05/09/2021 Inj-Img [id number]. 60min. Rest Admin Site:IV - Left AntecubitalAdministrator:RT Malathi (Karlie)(N) Stress Admin Site: IV - Left AntecubitalAdministrator: CASSIDY Bates STRESS DATA End Diast. Vol.83.0mlLVEDV index BSA45.0ml End Syst. Vol.20.0mlLVESV index BSA11.0ml Myocardial Jfwy947.0gEject. Zxrcdxyn79.0% Stress Scores Regional WT0.00Summed WT0.00 Regional WM0.00Summed WM0.00 The rest and stress images show normal perfusion, normal contraction and thickening. LV Perf. Quant 17 Seg. SSS1.00 17 Seg. SRS0.00 17 Seg. SDS1.00 Stress Defect Extent (% LAD)0.00Rest Defect Extent (% LAD)5.00Rev. Defect Extent (% LAD)0.00 Stress Defect Extent (% LCX) 7.50Rest Defect Extent (% LCX)0.00Rev. Defect Extent (% LCX)7.50 Stress Defect Extent (% RCA)0.00Rest Defect Extent (% RCA)0.00Rev. Defect Extent (% RCA)0.00 Stress Defect Extent (% TOMMIE)1.70Rest Defect Extent (% TOMMIE)1.70Rev. Defect Extent (% TOMMIE)1.70 Other Information Quality:Average Risk Assessment: Low Risk Conclusion 1. No evidence of EKG changes with stress testing. 2. Normal perfusion at stress/rest. 3. Low risk study. 4. EF > 60%. Signed by : Cheikh Robledo, Electronically Approved : 05/10/2021 09:41:08
== END ==
LOC: EDSEX → NM 08:34
PROVIDERS: ATTEND Internal Medicine Cardiovascular Disease
DX: I08.8 Other rheumatic multiple valve diseases (principal); R55 Syncope and collapse
CPT/HCPCS: 78452; 93017; 93306; A9500; J2785; C8929

== ENCOUNTER → 2021-07-02 | Outpatient (CLI) | payer OTHER ==
[~2021-07-02] MED LIST changes: +DULO60CA6 PO; -DULO60CA7 PO; -REGADENOSON 0.4 MG/5 ML DISP.SYRIN. IV ONE
[2021-07-02 12:14] LABS: CALCIUM 9.8 mg/dL (8.5-10.1); CREATININE 1.2 mg/dL (0.6-1.0); GFR 54.7; POTASSIUM 3.8 mmol/L (3.5-5.1)
== END ==
LOC: LAB 11:37
PROVIDERS: ATTEND Family Medicine
DX: I10 Essential (primary) hypertension (principal); E55.9 Vitamin D deficiency, unspecified
CPT/HCPCS: 36415; 80048; 82306

== ENCOUNTER → 2021-10-23 | Outpatient (CLI) | payer OTHER ==
[~2021-10-23] MED LIST changes: -DULO60CA6 PO; +DULO60CA7 PO
--- NOTE | 2021-10-24 12:25 | RAD ---
Bilateral digital screening mammogram to include digital breast tomosynthesis (3-D mammography) 10/23 CLINICAL HISTORY: Screening study. Digital MLO and CC mammograms of both breasts were obtained. Additionally digital breast tomosynthesi s images (3-D mammography) of both breasts in the CC and MLO projections were obtained. Comparison study is dated 10/17/2020. The breast parenchyma is heterogeneously dense which could obscure a lesion on mammography (breast de nsity C). Benign-appearing calcifications are seen within both breasts. No spiculated mass is seen. N o malignant appearing calcification or area of architectural distortion is noted. A cardiac monitorin g device is seen within the left chest wall, unchanged Digital breast tomosynthesis images demonstrate no spiculated mass. No malignant appearing calcificat ion is seen. Impression: BI-RADS Category 1: Negative. There is no mammographic evidence of malignancy. Routine y early screening mammography is recommended for follow-up. This examination was reviewed with the aid of computer-aided detection. A mammogram does not have 100% sensitivity and therefore a negative imaging study should not delay fu rther work up of a suspicious abnormality. Patient information is entered into the reminder system with a target due date for the next screening mammogram of 10/23/2022. "Our facility is accredited by the [employer] Mammography Program." Electronically signed by: Aldo Hess MD (10/24/2021 12:22 PM) [id number]
== END ==
LOC: MAMMO 14:47
PROVIDERS: ATTEND Family Medicine
DX: Z12.31 Encounter for screening mammogram for malignant neoplasm of breast (principal)
CPT/HCPCS: 77063; 77067

== ENCOUNTER → 2022-02-07 | Outpatient (CLI) | payer OTHER ==
[2022-02-07 12:02] LABS: CALCIUM 10.3 mg/dL (8.5-10.1); CREATININE 1.1 mg/dL (0.6-1.0); GFR 60.3; POTASSIUM 3.7 mmol/L (3.5-5.1)
== END ==
LOC: LAB 11:11
PROVIDERS: ATTEND Family Medicine
DX: I10 Essential (primary) hypertension (principal)
CPT/HCPCS: 36415; 80048